=== PATIENT | female | born 1985 | race African-American/Black ===

== ENCOUNTER 2016-12-06 18:56 | Emergency (ER) | payer OTHER ==
[2016-12-06 19:28] VITALS: BP 123/89
--- NOTE | 2016-12-06 20:10 | UC ---
Cardiac HPI - HPI Summary HPI Summary: The patient comes in today for: 1. Heart was racing, and feeling lightheadedness (near syncope): Onset: Yesterday--for about 2 hours. 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 It lasted about 1.5 hours. Very first time she had this sort of thing was several years ago. She was put on Zoloft at that time. She thinks that this medication helped. She was having about 2-3/ day. At that time, these episodes were lasting just an hour. She did not have an evaluation for possible medical cause. Palliative/provocative: Sitting down made it better. Nothing else affected it. Quality: Region: Severity: Associated symptoms: Diet: No energy drinks. She drinks about 2-3 cups/weak. No decongestants or herbal supplements. Previous heart disease: None Previous thyroid problems (no change in her hair, weight, or sleep). CAD risk factors: Smoker: 1 cigarette once a day, HTN: only gestational (5 years ago), DM: None, Previous heart disease: None FmHx: (-), Shortness of breath: Present during the whole palpitations. Previous disease: She had this before. She was put on Zoloft at 25 mg/day three weeks ago by her primary care provider due to the panic attacks getting worse. This medication has helped. Her PCP referred her to mental health. PCP: Dr. Alvares * - History of Current Complaint Chief Complaint: UCChestPain Stated Complaint: CHEST PAIN Time Seen by Provider: 12/06/16 20:01 Hx Obtained From: Patient, Family/Daycare Assistant - Allergy/Home Medications Allergies/Adverse Reactions: Allergies Allergy/AdvReac Type Severity Reaction Status Date / Time No Known Allergies Allergy Verified 12/06/16 19:16 PMH/Surg Hx/FS Hx/Imm Hx Previously Healthy: Yes Endocrine History Of: Denies: Diabetes, Thyroid Disease, Hyperthyroidism, Hypothyroidism, Dyslipidemia Cardiovascular History Of: Denies: Cardiac Disorders, Hypertension, Pacemaker/ICD, Myocardial Infarction , Congestive Heart Failure, Atrial Fibrillation, Deep Vein Thrombosis, Bleeding Disorders Respiratory History Of: Denies: COPD, Asthma, Bronchitis, Pneumonia, Pulmonary Embolism GI/ History Of: Denies: Gastroesophageal Reflux, Ulcer, Gastrointestinal Bleed, Gall Bladder Disease, Kidney Stones, Diverticulitis, Renal Disease, Urosepsis Neurological History Of: Denies: TIA, CVA, Dementia, Seizures, Migraine Psychological History Of: Denies: Anxiety, Depression, Bipolar Disorder, Schizophrenia, Post Traumatic Stress Disorder Cancer History Of: Denies: Lung Cancer, Colorectal Cancer, Breast Cancer, Prostate Cancer, Cervical Cancer Other History Of: Negative For: HIV, Hepatitis B, Hepatitis C, Anticoagulant Therapy - Surgical History Surgical History: None - Family History Known Family History: Negative: Cardiac Disease, Hypertension - Social History Occupation: Employed Full-time Alcohol Use: None Substance Use Type: None Smoking Status (MU): Current Some Day Smoker Review of Systems Constitutional: Negative Skin: Negative Eyes: Negative ENT: Negative Respiratory: Negative Cardiovascular: Negative Gastrointestinal: Negative Genitourinary: Negative All Other Systems Reviewed And Are Negative: Yes Physical Exam Triage Information Reviewed: Yes Appearance: Well-Appearing, No Pain Distress, Well-Nourished Vital Signs: Initial Vital Signs Temp 98.6 F 12/06/16 19:23 Pulse 79 12/06/16 19:23 Resp 16 12/06/16 19:23 BP 123/89 12/06/16 19:23 Pulse Ox 100 12/06/16 19:23 Vital Signs Reviewed: Yes Eyes: Positive: Conjunctiva Clear. Negative: Discharge ENT: Positive: Hearing grossly normal. Negative: Pharyngeal erythema, Nasal congestion, Nasal drainage, TM bulging, TM dull, TM red, Tonsillar swelling, Tonsillar exudate Dental: Negative: Gross Decay/Caries @, Dental Fracture @ Neck: Positive: Supple, Nontender, No Lymphadenopathy. Negative: Nuchal Rigidity Respiratory: Negative: Lungs clear, No respiratory distress, No accessory muscle use, Crackles, Wheezing Cardiovascular: Positive: RRR, No Murmur Abdomen Description: Positive: Nontender, No Organomegaly, Soft Musculoskeletal: Positive: Strength Intact, ROM Intact, No Edema Neurological: Positive: Alert, Muscle Tone Normal Psychological: Positive: Age Appropriate Behavior, Consolable Skin: Negative: rashes - Assessment/Plan Course Of Treatment: Patient told of her treatment options. She wants to increase her sertraline to 50 mg a day and follow up with her primary care provider. - Clinical Impression Provider Diagnoses: Anxiety/panic attacks. Discharge - Discharge Plan Condition: Stable Disposition: HOME Prescriptions: Sertraline* [Zoloft*] 50 mg PO DAILY #30 tab Patient Education Materials: Anxiety (ED) Forms: *Work Release Referrals: Omaira Warner MD [Primary Care Provider] -
== END 2016-12-06 20:46 | disposition home or self-care (01) ==
LOC: UCEAST 18:56
DX: F41.0 Panic disorder [episodic paroxysmal anxiety] (principal); Z72.0 Tobacco use
CPT/HCPCS: 93005; 99212; G0463

== ENCOUNTER 2017-10-17 17:45 | Emergency (ER) | payer OTHER ==
[2017-10-17] MEDS ORDERED: Ibuprofen TAB* 600 MG PO ONE (19:09)
[2017-10-17] MEDS ORDERED: Oseltamivir CAP* 75 MG CAP PO ONE (19:09)
--- NOTE | 2017-10-17 19:11 | ED ---
Influenza-Like Illness - HPI Summary HPI Summary: 31 female presents to ED with complaints of flu like illness, body aches, low grade fever, headache and nausea that began early this morning before going to bed and worsened when she woke up around 4pm today. Admits to some congestion and cough. Told to come to ER for flu swab. 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 Denies any vomiting, abdominal pain, or sore throat. No other complaints. No PMHx. Took ibuprofen and anti-nausea medication earlier this morning around 7am. - History of Current Complaint Chief Complaint: EDFluSymptoms Time Seen by Provider: 10/17/17 18:25 Hx Obtained From: Patient Onset/Duration: Sudden Onset, Lasting Hours, Still Present, Worse Since Severity: Moderate Associated Signs & Symptoms: Fever, T Max - 100, Myalgia, Cough, Nasal Congestion, Headache - Allergy/Home Medications Allergies/Adverse Reactions: Allergies Allergy/AdvReac Type Severity Reaction Status Date / Time No Known Allergies Allergy Verified 12/06/16 19:16 PMH/Surg Hx/FS Hx/Imm Hx Endocrine/Hematology History: Denies: Hx Anticoagulant Therapy, Hx Diabetes, Hx Thyroid Disease Cardiovascular History: Denies: Hx Congestive Heart Failure, Hx Deep Vein Thrombosis, Hx Hypertension , Hx Myocardial Infarction, Hx Pacemaker/ICD Respiratory History: Denies: Hx Asthma, Hx Chronic Obstructive Pulmonary Disease (COPD), Hx Lung Cancer, Hx Pneumonia, Hx Pulmonary Embolism GI History: Denies: Hx Gall Bladder Disease, Hx Gastrointestinal Bleed, Hx Ulcer, Hx Urosepsis History: Denies: Hx Kidney Stones, Hx Renal Disease Neurological History: Denies: Hx Dementia, Hx Migraine, Hx Seizures, Hx Transient Ischemic Attacks (TIA) Psychiatric History: Denies: Hx Anxiety, Hx Depression, Hx Schizophrenia, Hx Bipolar Disorder - Surgical History Surgery Procedure, Year, and Place: n/a - Immunization History Date of Influenza Vaccine: 9484-8570 season Immunizations Up to Date: Yes Infectious Disease History: No Infectious Disease History: Denies: Traveled Outside the [place] in Last 30 Days - Family History Known Family History: Negative: Cardiac Disease, Hypertension - Social History Alcohol Use: None Substance Use Type: Reports: None Smoking Status (MU): Current Some Day Smoker Review of Systems Positive: Fever, Chills, Fatigue Positive: Nasal Discharge Cardiovascular: Negative Positive: Cough Positive: Nausea Positive: Myalgia Positive: Headache All Other Systems Reviewed And Are Negative: Yes Physical Exam Triage Information Reviewed: Yes Vital Signs On Initial Exam: Initial Vitals Temp Pulse Resp BP Pulse Ox 99.8 F 95 18 126/85 98 10/17/17 17:50 10/17/17 17:50 10/17/17 17:50 10/17/17 17:50 10/17/17 17:50 low grade temp noted Vital Signs Reviewed: Yes Appearance: Positive: No Pain Distress, Well-Nourished, Ill-Appearing Skin: Positive: Warm, Skin Color Reflects Adequate Perfusion, Dry. Negative: Cold, Numb, Cyanosis @, Pale, Erythema @ Head/Face: Positive: Normal Head/Face Inspection Eyes: Positive: Conjunctiva Clear ENT: Positive: Pharynx normal, Nasal congestion, TMs normal, Uvula midline. Negative: Tonsillar swelling, Tonsillar exudate, Sinus tenderness Dental: Negative: Cervical Lymphadenopathy Neck: Positive: Supple, Nontender Respiratory/Lung Sounds: Positive: Clear to Auscultation, Breath Sounds Present. Negative: Rales, Rhonchi, Wheezes Cardiovascular: Positive: Normal, RRR, Pulses are Symmetrical in both Upper and Lower Extremities. Negative: Murmur, Rub Abdomen Description: Positive: Nontender, Soft Bowel Sounds: Positive: Present Musculoskeletal: Positive: Normal, Strength/ROM Intact Neurological: Positive: Normal, Sensory/Motor Intact, Alert, Oriented to Person Place, Time Diagnostics - Vital Signs Vital Signs Temp Pulse Resp BP Pulse Ox 10/17/17 17:50 99.8 F 95 18 126/85 98 - Laboratory Lab Results: Lab Results 10/17/17 Range/Units 17:55 Influenza A (Rapid) Negative (Negative) Influenza B (Rapid) Negative (Negative) Lab Statement: Any lab studies that have been ordered have been reviewed, and results considered in the medical decision making process. Flu Symptom Course/Dx - Course Course Of Treatment: influneza swab obtained and negative. appears to be suffering from virus/flu-like illness. no other concerns at this time. aware of worsening signs and symptoms to watch out for. Follow up pcp. fluids, rest, continue anti-emetic, ibuprofen/tylenol. will give tamiflu due to flu exposure and symptoms of flu. patient requested, agrees and understands. good hand hygeine. - Diagnoses Differential Diagnosis/HQI/PQRI: Positive: Influenza, Upper Respiratory Infection, Other - viral syndrome Provider Diagnoses: Viral syndrome, Flu-like symptoms Discharge - Discharge Plan Condition: Stable Disposition: HOME Prescriptions: Oseltamivir CAP* [Tamiflu CAP*] 75 mg PO BID #9 cap Patient Education Materials: Viral Syndrome (ED) Forms: *Work Release Referrals: Jacqueline Brandt NP [Primary Care Provider] - Additional Instructions: Continue ibuprofen/tylenol alternating for headache, body aches and fever. Increase fluid intake and stay well hydrated. Rest and be sure to wash hands frequently, cover mouth when coughing. Continue anti-nausea medication as needed so you are able to increase fluids. Follow up with PCP. Any new or worsening symptoms please seek medical attention promptly.
[2017-10-17] MEDS ORDERED: Ondansetron ODT TAB* 4 MG PO ONE (19:20)
[2017-10-17 20:07] VITALS: BP 125/74
== END 2017-10-17 20:06 | disposition home or self-care (01) ==
LOC: ED 17:45
DX: B34.9 Viral infection, unspecified (principal); J11.1 Influenza due to unidentified influenza virus with other respiratory manifestations
CPT/HCPCS: 87502; 99282; A9270-GY

== ENCOUNTER 2017-11-21 06:35 | Emergency (ER) | payer OTHER ==
--- NOTE | 2017-11-21 08:16 | RAD ---
HISTORY: Right hand injury, swelling COMPARISONS: None VIEWS: 2, Frontal and lateral views of the right hand FINDINGS: BONE DENSITY: Normal. BONES: There is no displaced fracture. JOINTS: There is no arthropathy. ALIGNMENT: There is no dislocation. SOFT TISSUES: Unremarkable. OTHER FINDINGS: None. IMPRESSION: NO ACUTE OSSEOUS INJURY. IF SYMPTOMS PERSIST, RECOMMEND REPEAT IMAGING.
[2017-11-21] MEDS ORDERED: Ketorolac INJ* 30 MG/ML 1 ML VIAL IV PUSH ONE (08:31)
--- NOTE | 2017-11-21 09:36 | RAD ---
INDICATION: Pain and swelling. COMPARISON: None TECHNIQUE: Duplex interrogation of the Lowerextremity was performed. FINDINGS: Deep veins: The visualized jugular, visualized Indonesian, axial, brachial, radial, and ulnar veins are patent. There is normal compressibility, augmentation, and phasic flow. Superficial veins: There are no findings of superficial thrombophlebitis. The basilic and cephalic veins are patent Soft tissues:There are no soft tissue abnormalities. IMPRESSION: Normal examination. No evidence of deep venous thrombosis
[2017-11-21] MEDS ORDERED: Ketorolac INJ* 60 MG/2 ML VIAL IM ONE (09:43)
[2017-11-21 09:48] LABS: Hematocrit 36 % (35-47); Hemoglobin 12.3 g/dl (12.0-16.0); Mean Corpuscular HGB Conc 34 g/dl (31-36); Mean Corpuscular Hemoglobin 31 pg (27-31); Mean Corpuscular Volume 91 fL (80-97); Platelet Count 231 10^3/ul (150-450); Red Blood Count 3.99 10^6/ul (4.0-5.4); Red Cell Distribution Width 14 % (10.5-15); White Blood Count 5.8 10^3/ul (3.5-10.8)
[2017-11-21 10:05] LABS: EGFR Non-African American 103.8 (>60)
[2017-11-21 11:18] VITALS: BP 00/0
--- NOTE | 2017-12-05 12:57 | ED ---
Paulo Burnham Stephanie, scribed for J Luis Bustos MD on 11/21/17 at 0842 . Upper Extremity Pain - HPI Summary HPI Summary: The pt is a 31 y/o F presenting to the ED with c/o R hand pain that began on . 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 Symptoms include nausea secondary to the R hand pain and warmth over the R forearm. The pt denies CP, bilateral LE edema, R hand tingling, R hand numbness, fever, diaphoresis and chills. She denies hearing a snapping or popping sound from her R UE. Alleviating factors include rest. The pt states she has been mopping harder than usual. Pain is rated as a 7 in severity. - History of Current Complaint Chief Complaint: EDExtremityUpper Stated Complaint: RIGHT HAND INJURY Time Seen by Provider: 11/21/17 08:12 Hx Obtained From: Patient Hx Last Menstrual Period: about 4 days ago Mechanism Of Injury: Unknown Onset/Duration: Started Days Ago - 1, Still Present Timing: Constant Severity Currently: Moderate Pain Location: Hand - R Aggravating Factor(s): Extension Alleviating Factor(s): Nothing Associated Signs & Symptoms: Positive: Swelling - R lower arm, Nausea - secondary to pain, Other - Negative: bilateral LE edema, R hand tingling, R hand numbness. Negative: Fever, Chest Pain, Diaphoresis - Allergies/Home Medications Allergies/Adverse Reactions: Allergies Allergy/AdvReac Type Severity Reaction Status Date / Time No Known Allergies Allergy Verified 12/06/16 19:16 PMH/Surg Hx/FS Hx/Imm Hx Endocrine/Hematology History: Denies: Hx Anticoagulant Therapy, Hx Diabetes, Hx Thyroid Disease Cardiovascular History: Denies: Hx Congestive Heart Failure, Hx Deep Vein Thrombosis, Hx Hypertension , Hx Myocardial Infarction, Hx Pacemaker/ICD Respiratory History: Denies: Hx Asthma, Hx Chronic Obstructive Pulmonary Disease (COPD), Hx Lung Cancer, Hx Pneumonia, Hx Pulmonary Embolism GI History: Denies: Hx Gall Bladder Disease, Hx Gastrointestinal Bleed, Hx Ulcer, Hx Urosepsis History: Denies: Hx Kidney Stones, Hx Renal Disease Neurological History: Denies: Hx Dementia, Hx Migraine, Hx Seizures, Hx Transient Ischemic Attacks (TIA) Psychiatric History: Denies: Hx Anxiety, Hx Depression, Hx Schizophrenia, Hx Bipolar Disorder - Surgical History Surgery Procedure, Year, and Place: n/a - Immunization History Date of Influenza Vaccine: [id number] season Infectious Disease History: No Infectious Disease History: Denies: Traveled Outside the [place] in Last 30 Days - Family History Known Family History: Negative: Cardiac Disease, Hypertension - Social History Occupation: Employed Full-time Lives: Alone Alcohol Use: None Hx Substance Use: No Substance Use Type: Reports: None Hx Tobacco Use: Yes Smoking Status (MU): Current Some Day Smoker Have You Smoked in the Last Year: Yes Review of Systems Negative: Fever, Chills, Skin Diaphoresis Positive: Nausea - secondary to pain Positive: Edema - Negative: bilateral LE edema, Other - R hand pain, warmth over R forearm Positive: Paresthesia - of R hand. Negative: Numbness - R hand All Other Systems Reviewed And Are Negative: Yes Physical Exam - Summary Physical Exam Summary: Constitutional: Well-developed, Well-nourished, Alert. (-) Distressed Skin: Warm, Dry HENT: Normocephalic; Atraumatic Eyes: Conjunctiva normal Neck: Musculoskeletal ROM normal neck. (-) JVD, (-) Stridor, (-) Tracheal deviation Cardio: Rhythm regular, rate normal, Heart sounds normal; Intact distal pulses; The pedal pulses are 2+ and symmetric. Radial pulses are 2+ and symmetric. (-) Murmur Pulmonary/Chest wall: Effort normal. (-) Respiratory distress, (-) Wheezes, (-) Rales Abd: Soft, (-) Tenderness, (-) Distension, (-) Guarding, (-) Rebound Musculoskeletal: minimal pain with passive extension of the fingers of R hand, there is edema to the medial aspect of the R lower arm distal to the elbow, no erythema, no tenderness Lymph: (-) Cervical adenopathy Neuro: Alert, Oriented x3 Psych: Mood and affect Normal Triage Information Reviewed: Yes Vital Signs On Initial Exam: Initial Vitals Temp Pulse Resp BP Pulse Ox 98.5 F 82 16 129/95 98 11/21/17 06:36 11/21/17 06:36 11/21/17 06:36 11/21/17 06:36 11/21/17 06:36 Vital Signs Reviewed: Yes Diagnostics - Vital Signs Vital Signs Temp Pulse Resp BP Pulse Ox 11/21/17 06:36 98.5 F 82 16 129/95 98 - Laboratory Result Diagrams: 11/21/17 09:34 11/21/17 09:34 Lab Statement: Any lab studies that have been ordered have been reviewed, and results considered in the medical decision making process. - Radiology R Hand XRay Xray Interpretation: No Acute Changes Radiology Interpretation Completed By: Radiologist - NO ACUTE OSSEOUS INJURY. IF SYMPTOMS PERSIST, RECOMMEND REPEAT IMAGING. ED physician has reviewed this report. - Additional Comments Diagnostic Additional Comments: Venous Doppler Reveals: Normal examination. No evidence of deep venous thrombosis Re-Evaluation - Re-Evaluation First Eval Re-Evaluation Time: 10:56 Change: Unchanged - The pt has discomfort in the wrist and hand with extension. No wrist and hand bony tenderness. Course/Dx - Course Course Of Treatment: The pt is relatively comfortable. ED physician does not suspect compartment syndrome. Compartments are soft. ED physician does not suspect cellulitis. There is no tenderness to palpation at all and no skin tenderness. Her pain with active and passive ROM is most suggestive of tendinitis. Dr. Alba suggests possible chronic contracture. Dr. Alba recommended cockup splint. - Diagnoses Provider Diagnoses: Hand pain - Physician Notifications Discussed Care of Patient With: Hardy Gonzalez Time Discussed With Above Provider: 10:51 Discharge - Sign-Out/Discharge Documenting (check all that apply): Discharge - Discharge Plan Condition: Stable Disposition: HOME Prescriptions: traMADol TAB* [Ultram*] 50 mg PO BEDTIME PRN #5 tab MDD 1 PRN Reason: Pain - Moderate To Severe Patient Education Materials: Arthralgia (ED) Forms: *Work Release Referrals: Jacqueline Brandt NP [Primary Care Provider] - 3 Days Hardy Gonzalez MD [Medical Doctor] - 2 Days Additional Instructions: Follow up with ortho in 48 hrs. RETURN TO THE EMERGENCY DEPARTMENT FOR CHANGING OR WORSENING SYMPTOMS. The documentation as recorded by the Paulo wright Stephanie accurately reflects the service I personally performed and the decisions made by me, J Luis Bustos MD.
== END 2017-11-21 11:16 | disposition home or self-care (01) ==
LOC: ED 06:35
DX: M79.641 Pain in right hand (principal); M79.601 Pain in right arm; R11.0 Nausea; Z72.0 Tobacco use
CPT/HCPCS: 36415; 80053; 85027; 85652; 86140; 96372; 96374; 99282; J1885

== ENCOUNTER 2018-03-13 09:58 | Emergency (ER) | payer OTHER ==
[2018-03-13] MEDS ORDERED: HYDROcodone/ACETAMIN 5-325 MG* 1 TAB PO ONE (10:54)
[2018-03-13 11:15] LABS: Urine Appearance Clear; Urine Blood Negative (Negative); Urine Color Yellow; Urine Ketones Negative (Negative); Urine Protein Negative (Negative); Urine Specific Gravity 1.019 (1.010-1.030); Urine Urobilinogen Negative (Negative)
--- NOTE | 2018-03-13 11:41 | ED ---
Upper Extremity Pain - HPI Summary HPI Summary: Patient presents with bilateral wrist and hand pain - 02/04. Lt > RT. She reports this started about 2-3 days ago and was worse last night. She had to leave work due to pain. She took Tylenol without relief and pain woke her early this morning. She has somewhat decreased sensation and pain worse with gripping. Her right hand was injured 2-3 months ago after overuse with mopping at work. She was seen in physical therapy and has been wearing a splint which has been helpful up until recently. She has not had her left hand treated yet. . 9 weeks . Prior history of pre-eclampsia with one of her births. Denies headache, visual change, leg swelling or fluid retention, CP or SOB at this time. Due to se OBGYN in a few weeks for 1st appt. - History of Current Complaint Chief Complaint: EDExtremityUpper Stated Complaint: LT HAND INJURY Time Seen by Provider: 03/13/18 10:11 Hx Obtained From: Patient, Family/Transformer Inspector - fiance Hx Last Menstrual Period: about 4 days ago - Allergies/Home Medications Allergies/Adverse Reactions: Allergies Allergy/AdvReac Type Severity Reaction Status Date / Time No Known Allergies Allergy Verified 03/13/18 10:04 PMH/Surg Hx/FS Hx/Imm Hx Previously Healthy: Yes Endocrine/Hematology History: Denies: Hx Anticoagulant Therapy, Hx Diabetes, Hx Thyroid Disease Cardiovascular History: Reports: Other Cardiovascular Problems/Disorders - pre- eclempsia during 1 of her pregnancies Denies: Hx Congestive Heart Failure, Hx Deep Vein Thrombosis, Hx Hypertension , Hx Myocardial Infarction, Hx Pacemaker/ICD Respiratory History: Denies: Hx Asthma, Hx Chronic Obstructive Pulmonary Disease (COPD), Hx Lung Cancer, Hx Pneumonia, Hx Pulmonary Embolism GI History: Denies: Hx Gall Bladder Disease, Hx Gastrointestinal Bleed, Hx Ulcer, Hx Urosepsis History: Denies: Hx Kidney Stones, Hx Renal Disease Musculoskeletal History: Reports: Hx Tendonitis - Rt hand/wrist Neurological History: Denies: Hx Dementia, Hx Migraine, Hx Seizures, Hx Transient Ischemic Attacks (TIA) Psychiatric History: Denies: Hx Anxiety, Hx Depression, Hx Schizophrenia, Hx Bipolar Disorder - Surgical History Surgery Procedure, Year, and Place: n/a - Immunization History Date of Influenza Vaccine: [id number] season Infectious Disease History: No Infectious Disease History: Denies: Traveled Outside the [place] in Last 30 Days - Family History Known Family History: Negative: Cardiac Disease, Hypertension - Social History Occupation: Employed Full-time - nurse aid Lives: With Family Alcohol Use: None Hx Substance Use: No Substance Use Type: Reports: None Hx Tobacco Use: Yes Smoking Status (MU): Former Smoker Have You Smoked in the Last Year: Yes Review of Systems Constitutional: Negative Negative: Fever, Chills, Fatigue Eyes: Negative Negative: Chest Pain Negative: Shortness Of Breath Gastrointestinal: Negative Negative: Abdominal Pain, Vomiting, Diarrhea, Nausea Genitourinary: Negative - no vaginal spotting, bleeding Positive: Arthralgia, Myalgia, Decreased ROM. Negative: Edema Skin: Negative Positive: Weakness - vs. pain induced restriction, Paresthesia. Negative: Headache, Numbness, Syncope, Slurred Speech Psychological: Normal All Other Systems Reviewed And Are Negative: Yes Physical Exam Triage Information Reviewed: Yes Vital Signs On Initial Exam: Initial Vitals Temp Pulse Resp BP Pulse Ox 99.0 F 93 16 145/100 100 03/13/18 10:03/13/18 10:03/13/18 10:03/13/18 10:03/13/18 10:00 Vital Signs Reviewed: Yes Appearance: Positive: Well-Appearing, Well-Nourished, Pain Distress Skin: Positive: Warm, Skin Color Reflects Adequate Perfusion, Dry - no erythema , no ecchymosis, no lesions over affected areas of UE's Head/Face: Positive: Normal Head/Face Inspection Eyes: Positive: EOMI ENT: Positive: Hearing grossly normal Respiratory/Lung Sounds: Positive: Clear to Auscultation, Breath Sounds Present Cardiovascular: Positive: Normal, RRR, Pulses are Symmetrical in both Upper and Lower Extremities - no edema, S1, S2. 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 Negative: Sensory/Motor Intact - can feel gross touch of B/L UE's however reports somewhat decreased sensation over all phalanges B/L; TTP voer thenar eminance and distal forearms B/L - no proximal muscle insertion tenderness Psychiatric: Positive: Anxious Diagnostics - Vital Signs Vital Signs Temp Pulse Resp BP Pulse Ox 03/13/18 10:00 99.0 F 93 16 145/100 100 - Laboratory Lab Results: Lab Results 03/13/18 Range/Units 11:00 Urine Color Yellow Urine Appearance Clear Urine pH 5.0 (5-9) Ur Specific [place] 1.019 (1.010-1.030) Urine Protein Negative (Negative) Urine Ketones Negative (Negative) Urine Blood Negative (Negative) Urine Nitrate Negative (Negative) Urine Bilirubin Negative (Negative) Urine Urobilinogen Negative (Negative) Ur Leukocyte Esterase Negative (Negative) Urine Glucose Negative (Negative) Lab Statement: Any lab studies that have been ordered have been reviewed, and results considered in the medical decision making process. Course/Dx - Course Course Of Treatment: Patient presents with bilateral hand and wrist pain and decreased sensation over the past 2-3 days. She admits to a history of right- sided carpal tunnel/tendinitis. She was treated with physical therapy and a splint which seemed to alleviate symptoms until recently. She now has return of symptoms and the right hand and they have been present in the left hand as well. She has been working as a nurse's aide which entails lifting, gripping, etc. Suspect she has tendonitis with some featrures of CTS. Will refer to PT and PCP. NOTE: BP elevated and w/ h/o pre-eclempsia, checked pt's urine which not only is w/o protein but is completely normal otherwise. BP improved s/p norco. Discussion about using judiciously d/t . Pt and partner voice understanding. NOTE: FHR attempted bedside however too early to hear HR. No concerns of miscarriage so no further testing necessary at this time. Pt will f/ u w/ OBGYN as directed and may return to ED sooner if she has concerns of miscarriage. - Diagnoses Provider Diagnoses: Tendonitis of both wrists Discharge - Sign-Out/Discharge Documenting (check all that apply): Patient Departure - Discharge Plan Condition: Stable Disposition: HOME Prescriptions: HYDROcodone/ACETAMIN 5-325 MG* [[place] 5-325 TAB*] 1 tab PO Q6H PRN #15 tab MDD 4 PRN Reason: Pain Patient Education Materials: Tendinitis (ED) Forms: *Work Release Referrals: [facility] [Outside] Additional Instructions: You appear to have bilateral tendinitis of the flexor muscles in your forearm. The inflammation this causes may additionally be contributing to carpal tunnel syndrome. It is important that she wear your wrist guards daily and nightly however you may remove to stretch your wrists and fingers throughout the day to prevent stiffness and atrophy. He may also continue to take acetaminophen 650 mg every 6 hours as needed for pain. If pain is unbearable interfering with sleep, he may take one [place]. Take sure not to exceed 4000 mg of acetaminophen in a 24-hour period. He may calculate this milligram dosage by looking at the dosage on your [place] (325 mg per pill) and the dosage on your acetaminophen. Is important that you follow-up with physical therapy and a PCP this week. After multiple sessions of physical therapy, your PCP will most likely want to see you for a follow-up visit to see how your progressing. If further testing or treatment is necessary, this may be ordered at that time. Call today to schedule these appointments - contact information included here. Physical Therapy: - Billing Disposition and Condition Condition: STABLE Disposition: Home
[2018-03-13 11:51] VITALS: BP 107/84
== END 2018-03-13 11:50 | disposition home or self-care (01) ==
LOC: ED 09:58
DX: O26.891 Other specified pregnancy related conditions, first trimester (principal); M65.841 Other synovitis and tenosynovitis, right hand; M65.842 Other synovitis and tenosynovitis, left hand; Z3A.09 9 weeks gestation of pregnancy
CPT/HCPCS: 81003; 99282

== ENCOUNTER 2018-03-14 17:31 | Emergency (ER) | payer OTHER ==
--- OUTSIDE RECORDS SUMMARY | 2018-03-14 17:49 | XMS REPORT ---
:1985 External Reference #:[id number] Author Organization [facility] Address [address] [place] [address] [place] [address] Phone [phone] Care Team Providers Name Role Phone Patient's Choice Primary Care Physician Unavailable Payers Type Date Identification Numbers Payment Provider Subscriber Commercial Policy Number: [id number] Tristan De La Cruz Lashawn Group Number: [id number] [address] PayID: [id number] [place] [address] Workers Compensation Onset: 2015 Policy Number: Pérezlaurita De La Cruz [id number] Lashawn PayID: [id number] [address] [address] [place] [address] Workers Compensation Onset: 2017 Policy Number: [facility] Zane De La Cruz Lashawn [id number] Group Name: [phone] PayID: [place] [address] Problems Date Description Provider Status Onset: 09/06/2013 Obesity Omaira Warner M.D. Active Onset: 09/06/2013 Generalized anxiety disorder Omaira Warner M.D. Active Onset: 10/08/2015 Low back pain Omaira Warner M.D. Active Onset: 10/08/2015 Pain in thoracic spine Omaira Warner M.D. Active Onset: 03/14/2018 Wrist joint pain Calin Brown MD Active Onset: 03/14/2018 Bilateral carpal tunnel syndrome Calin Brown MD Active Social History Type Date Description Comments Marital Status Single Engaged Lives With Daughters Lives With Son Occupation Works at [employer] ETOH Use consumes 4-5 glasses of wine per week ETOH Use Consumes 1 glass of wine per week Recreational Drug Use Denies Drug Use Smoking Patient is a former smoker Exercise Type/Frequency Exercises rarely Sexual Hx text sexually active Allergies, Adverse Reactions, Alerts Date Description Reaction Status Severity Comments 08/23/2013 NKDA active Medications Medication Date Status Form Strength Qnty SIG Indications Ordering Provider Womens One Daily 00/ Active Tablets 1 by mouth Unknown /0000 every day Tylenol Active Tablets 325mg take 2 Unknown /0000 tabs as needed every 6 hours for pain/fever Hydrocodone-Acet Active Tablets 5-325mg 1 or 2 Unknown aminophen /0000 tabs by mouth every 6-8 hours as needed for pain No Active 11/29 Hx Unknown Medications /2017 - 03/14 Bupropion HCL 05/16 Hx Tablets 100mg 60tab take 1 F90.2 s tablet by Varn, N.P. - mouth two 11/28 times daily Omeprazole 04/[address] 20mg 60cap 1 by mouth K21.9 Kayla /2017 s every day Vanessa Ryan 30 min M.DHope 05/16 before breakfast Alprazolam 12/08 Hx Tablets 0.25mg 20tab one by F41.9 s mouth up Varn, N.P. - to three 05/16 times daily as needed for anxiety Tramadol HCL 11/25 Hx Tablets 50mg 14tab 1 tablet M54.5 s three Varn, N.P. - times 04/10 daily needed Cyclobenzaprine 11/25 Hx Tablets 10mg 30tab one by M54.5 Jacqueline s mouth 2x Varn, N.P. - per day as 11/28 needed spasm Medrol 11/25 Hx TBPK 4mg 21uni 6 by mouth M54.5 ts day 1, 5 Varn, N.P. - by mouth 12/01 day 2, by mouth day 3, 3 by mouth day 4, 2 by mouth day 5, 1 by mouth day 6 Sertraline HCL 11/16 Hx Tablets 25mg 30tab 1 by mouth F34.1 Bebeto Subramanian s every day Vanessa Alvares M.D. 12/08 Colace 10/16 Hx Capsules 100mg 90cap 1 tab by [id number] Angel s mouth Rito, - three M.D. 05/16 times a day as needed Hydrocodone-Acet 08/11 Hx Tablets 5-325mg 60tab 1 by mouth M54.5 Omaira aminophen s twice a Timmy, - day M.D. 11/16 No Active 07/31 Hx Unknown Medications - 07/31 Ortho Tri-Cyclen 07/31 Hx Tablets 0.18/0.21 28tab 1 by mouth N92.6 Omaira Lo 5/0.25 s every day Timmy, - mg-25 mcg M.D. 04/10 Naproxen 07/31 Hx Tablets 500mg 120ta No Longer M54.5 Omaira /2014 bs Helping Timmy, - M.D. 12/08 Hydrocodone 07/31 Hx Tablets 2.5-325mg 42tab 1 tab po M54.5 Omaira Bitartrate/Aceta s 2x per day saqib Warner - M.D. 07/31 Hydrocodone-Acet 07/31 Hx Tablets 5-325mg 20tab 1/2 PO bid M54.5 Tali aminophen s Naga, - M.D. 07/31 Cyclobenzaprine 07/31 Hx Tablets 10mg 90tab one by M54.5 Omaira HCL s mouth 2x Timmy, - per day as M.D. 11/16 spasm Metronidazole 09/12 Hx Gel 0.75% 1tube t applicator Timmy, - vaginally M.D. 07/31 once per day 7 days No Active 09/11 Hx Unknown Medications - 09/11 Depo-Provera 09/11 Hx Suspension 150mg/ml 1vial inject V76.2 150 mg sc Timmy, - every 3 M.D. Clindacin Etz 10/24 Hx Swab 1% 1mont use on 706.1 Omaira Segal h face 3 Timmy, - times per M.D. Spironolactone 10/24 Hx Tablets 25mg 30tab 1 po qd 706.1 Omaira /2014 s Vanessa Warner M.D. 09/11 Venlafaxine HCL 10/24 Hx Caps ER 37.5mg 1mont 1 tab po 300.02 24HR h every day Vanessa Warner 7 the .DHope 09/11 2 tab po /2014 every day 3 weeks Lexapro 09/06 Hx Tablets 10mg 30tab every day s by mouth Vanessa Warner M.D. 09/11 No Active 08/23 Hx Omaira Vanessa Warner M.D. 08/23 Venlafaxine HCL 08/23 Hx Caps ER 37.5mg 1mont 1 tab po 300.02 Omaira 24HR h every day Vanessa Warner 7 the .DHope 09/06 2 tab po every day 3 weeks Sertraline HCL Hx Tablets 50mg 60tab 2 tabs F34.1 Jacqueline /0000 s daily Varn, N.P. - 11/28 Womens One Daily Hx Tablets 1 by mouth Unknown /0000 every day - 05/16 Fish Oil Hx Capsules 1000mg 1 by mouth Unknown Concentrate /0000 twice a - day 05/16 Medications Administered in Office Medication Date Status Form Strength Qnty SIG Indications Ordering Provider PPD Administered Injection Nurse Visit 6 C PPD Administered Injection Nurse Visit 4 C Vital Signs Date Vital Result Comment 03/14/2018 Height 65.5 inches 5'5.50" Weight 242.12 lb Heart Rate 74 /min BP Systolic 132 mmHg Rue lrg cuff BP Diastolic 80 mmHg Rue lrg cuff BP Systolic Sitting 123 mmHg Lue lrg cuff BP Diastolic Sitting 83 mmHg Lue lrg cuff Respiratory Rate 18 /min Body Temperature 98.9 F O2 % BldC Oximetry 98 % BMI (Body Mass Index) 39.7 kg/m2 11/29/2017 Height 65.5 inches 5'5.50" Weight 220.00 lb Respiratory Rate 14 /min Pain Level 3 BMI (Body Mass Index) 36.0 kg/m2 05/16/2017 Height 65.5 inches 5'5.50" Weight 228.00 lb Heart Rate 94 /min BP Systolic Sitting 138 mmHg BP Diastolic Sitting 80 mmHg O2 % BldC Oximetry 99 % BMI (Body Mass Index) 37.4 kg/m2 04/11/2017 Weight 224.25 lb Heart Rate 94 /min BP Systolic Sitting 128 mmHg BP Diastolic Sitting 98 mmHg Body Temperature 98.5 F O2 % BldC Oximetry 97 % 03/20/2017 Weight 222.50 lb Heart Rate 72 /min BP Systolic 114 mmHg BP Diastolic 66 mmHg Body Temperature 98.7 F O2 % BldC Oximetry 98 % 01/11/2017 Weight 223.50 lb Heart Rate 112 /min BP Systolic 112 mmHg BP Diastolic 70 mmHg Body Temperature 98.3 F O2 % BldC Oximetry 98 % 12/08/2016 Weight 229.00 lb Heart Rate 83 /min BP Systolic Sitting 124 mmHg BP Diastolic Sitting 84 mmHg Body Temperature 97.9 F O2 % BldC Oximetry 99 % 11/25/2016 Weight 229.75 lb Heart Rate 75 /min BP Systolic 102 mmHg BP Diastolic 78 mmHg Body Temperature 98.6 F Pain Level 10 O2 % BldC Oximetry 99 % 11/16/2016 Height 65.5 inches 5'5.50" Weight 231.00 lb Heart Rate 66 /min BP Systolic 120 mmHg BP Diastolic 76 mmHg Body Temperature 98.6 F O2 % BldC Oximetry 96 % BMI (Body Mass Index) 37.9 kg/m2 05/09/2016 Height 65.5 inches 5'5.50" Weight 236.12 lb BP Systolic Sitting 128 mmHg BP Diastolic Sitting 80 mmHg BMI (Body Mass Index) 38.7 kg/m2 11/12/2015 Height 65.5 inches 5'5.50" Weight 237.00 lb Heart Rate 76 /min BP Systolic Sitting 126 mmHg BP Diastolic Sitting 82 mmHg Respiratory Rate 15 /min Body Temperature 98.3 F O2 % BldC Oximetry 98 % BMI (Body Mass Index) 38.8 kg/m2 10/16/2015 Height 65.5 inches 5'5.50" Weight 239.00 lb Heart Rate 88 /min BP Systolic Sitting 128 mmHg BP Diastolic Sitting 82 mmHg Respiratory Rate 15 /min Body Temperature 98.0 F O2 % BldC Oximetry 98 % BMI (Body Mass Index) 39.2 kg/m2 10/08/2015 Height 65.5 inches 5'5.50" Weight 239.50 lb Heart Rate 89 /min BP Systolic Sitting 123 mmHg BP Diastolic Sitting 85 mmHg O2 % BldC Oximetry 98 % BMI (Body Mass Index) 39.2 kg/m2 09/18/2015 Heart Rate 102 /min BP Systolic Sitting 125 mmHg BP Diastolic Sitting 88 mmHg Body Temperature 99.0 F Pain Level 6 09/04/2015 Height 65.75 inches 5'5.75" Weight 236.00 lb Heart Rate 91 /min BP Systolic 112 mmHg BP Diastolic 75 mmHg Body Temperature 99.0 F Pain Level 5 O2 % BldC Oximetry 100 % BMI (Body Mass Index) 38.4 kg/m2 08/27/2015 Height 65.75 inches 5'5.75" Weight 236.00 lb Heart Rate 102 /min BP Systolic 118 mmHg BP Diastolic 81 mmHg Body Temperature 98.5 F Pain Level 5 O2 % BldC Oximetry 98 % BMI (Body Mass Index) 38.4 kg/m2 08/11/2015 Weight 236.00 lb Heart Rate 100 /min BP Systolic Sitting 125 mmHg BP Diastolic Sitting 80 mmHg Body Temperature 98.4 F Pain Level 6 07/31/2015 Height 65.75 inches 5'5.75" Weight 232.00 lb Heart Rate 71 /min BP Systolic 122 mmHg BP Diastolic 77 mmHg BMI (Body Mass Index) 37.7 kg/m2 07/31/2015 Height 65.75 inches 5'5.75" Weight 232.00 lb Heart Rate 74 /min BP Systolic 122 mmHg BP Diastolic 78 mmHg O2 % BldC Oximetry 99 % BMI (Body Mass Index) 37.7 kg/m2 09/11/2014 Height 65.75 inches 5'5.75" Weight 206.00 lb Heart Rate 83 /min BP Systolic Sitting 115 mmHg BP Diastolic Sitting 81 mmHg BMI (Body Mass Index) 33.5 kg/m2 10/24/2013 Height 65.75 inches 5'5.75" Weight 216.75 lb Heart Rate 81 /min BP Systolic Sitting 122 mmHg BP Diastolic Sitting 84 mmHg Body Temperature 98.8 F O2 % BldC Oximetry 98 % BMI (Body Mass Index) 35.2 kg/m2 08/23/2013 Height 65.75 inches 5'5.75" Weight 217.00 lb Heart Rate 84 /min BP Systolic Sitting 118 mmHg BP Diastolic Sitting 79 mmHg BMI (Body Mass Index) 35.3 kg/m2 Results Test Date Test Result H/L Range Note Comp Metabolic Panel 11/21/2017 Sodium 136 mmol/L 133-145 Potassium 3.7 mmol/L 3.5-5.0 Chloride 103 mmol/L 101-111 Co2 Carbon Dioxide 26 mmol/L 22-32 Anion Gap 7 mmol/L 2-11 Glucose 107 mg/dL High 70-100 Blood Urea Nitrogen 11 mg/dL 6-24 Creatinine 0.66 mg/dL 0.51-0.95 BUN/Creatinine Ratio 16.7 8-20 Calcium 8.8 mg/dL 8.6-10.3 Total Protein 6.8 g/dL 6.4-8.9 Albumin 3.9 g/dL 3.2-5.2 Globulin 2.9 g/dL 2-4 Albumin/Globulin Ratio 1.3 1-3 Total Bilirubin 0.20 mg/dL 0.2-1.0 Alkaline Phosphatase 73 U/L 34-104 Alt 15 U/L 7-52 Ast 15 U/L 13-39 Egfr Non- 103.8 >60 Egfr 133.5 >60 1 Laboratory test finding 11/21/2017 C Reactive Protein 16.86 mg/L High < 5.00 2 CBC No Diff 11/21/2017 White Blood Count 5.8 10^3/uL 3.5-10.8 Red Blood Count 3.99 10^6/uL Low 4.0-5.4 Hemoglobin 12.3 g/dL 12.0-16.0 Hematocrit 36 % 35-47 Mean Corpuscular Volume 91 fL 80-97 Mean Corpuscular Hemoglobin 31 pg 27-31 Mean Corpuscular HGB Conc 34 g/dL 31-36 Red Cell Distribution Width 14 % 10.5-15 Platelet Count 231 10^3/uL 150-450 Mean Platelet Volume 8.0 um3 7.4-10.4 Laboratory test 11/21/2017 Erythrocyte Sed Rate 18 mm/Hr High 0-14 finding Laboratory test 12/08/2016 TSH (Thyroid Stim 1.32 mcIU/mL 0.34-5.60 finding Horm) Laboratory test 05/05/2016 Reference Lab Test SEE COMMENT 3 finding Herpes Simplex Type 05/05/2016 Herpes Simplex Virus I Positive Negative 1&2 Igg IgG AB Herpes Simplex Virus II IgG AB Negative Negative 4 Rubeola Measles Igg AB 05/05/2016 Rubeola (Measles) IgG Antibody Positive 5 Rubeola IgG Antibody Index 1.8 6 HIV 1/2 AB Evaluation 05/05/2016 HIV 1 2 Antibody Nonreactive Nonreactive 7 Laboratory test finding 05/05/2016 TSH (Thyroid Stim 1.05 mcIU/mL 0.34- 5.60 Horm) Comp Metabolic Panel 05/05/2016 Sodium 136 mmol/L 133-145 Potassium 3.8 mmol/L 3.5-5.0 Chloride 102 mmol/L 101-111 Co2 Carbon Dioxide 27 mmol/L 22-32 Anion Gap 7 mmol/L 2-11 Glucose 70 mg/dL 70-100 Blood Urea Nitrogen 11 mg/dL 6-24 Creatinine 0.80 mg/dL 0.51-0.95 BUN/Creatinine Ratio 13.8 8-20 Calcium 9.1 mg/dL 8.6-10.3 Total Protein 6.8 g/dL 6.4-8.9 Albumin 4.2 g/dL 3.2-5.2 Globulin 2.6 g/dL 2-4 Albumin/Globulin Ratio 1.6 1-3 Total Bilirubin 0.40 mg/dL 0.2-1.0 Alkaline Phosphatase 72 U/L 34-104 Alt 20 U/L 7-52 Ast 17 U/L 13-39 Egfr Non- 83.7 >60 Egfr 107.6 >60 8 CBC Auto Diff 05/05/2016 White Blood Count 4.6 10^3/uL 3.5-10.8 Red Blood Count 4.40 10^6/uL 4.0-5.4 Hemoglobin 13.5 g/dL 12.0-16.0 Hematocrit 40 % 35-47 Mean Corpuscular Volume 92 fL 80-97 Mean Corpuscular Hemoglobin 31 pg 27-31 Mean Corpuscular HGB Conc 34 g/dL 31-36 Red Cell Distribution Width 14 % 10.5-15 Platelet Count 256 10^3/uL 150-450 Mean Platelet Volume 8 um3 7.4-10.4 Abs Neutrophils 2.0 10^3/uL 1.5-7.7 Abs Lymphocytes 2.2 10^3/uL 1.0-4.8 Abs Monocytes 0.3 10^3/uL 0-0.8 Abs Eosinophils 0.2 10^3/uL 0-0.6 Abs Basophils 0 10^3/uL 0-0.2 Abs Nucleated RBC 0 10^3/uL Granulocyte % 43.6 % 38-83 Lymphocyte % 46.9 % 25-47 Monocyte % 5.5 % 1-9 Eosinophil % 3.3 % 0-6 Basophil % 0.7 % 0-2 Nucleated Red Blood Cells % 0.1 Lipid Profile (Trig/Chol/HDL) 05/05/2016 Triglycerides 92 mg/dL 9 Cholesterol 160 mg/dL 10 HDL Cholesterol 50.3 mg/dL 11 LDL Cholesterol 91 mg/dL 12 Laboratory test 10/08/2015 Gardnerella/Yeast: Vaginal SEE RESULT BELOW 13 finding Dna GC/Chlamydia 10/08/2015 Chlamydia trachomatis Rna Negative Negative Amplified Rna Neisseria gonorrhoeae (GC) Rna Negative Negative Laboratory test finding 10/08/2015 HPV Rna Ww/Reflex Genotype Negative Negative 14 Trichomonas Vaginalis Rna Negative Negative 15 Cytology SEE RESULT BELOW 16 Laboratory test finding 10/08/2015 Cytology <pending> Laboratory test finding 07/31/2015 Test Urine neg Confirm Opiates (GC/MS) 07/31/2015 Urine Codeine Confirmation Negative ng/ mL 17 Urine Hydrocodone Confirm Negative ng/mL 18 Urine Hydromorphone Confirm Negative ng/mL 19 Urine Morphine Confirm Negative ng/mL 20 Urine Oxymorphone Confirm 391 ng/mL 21 Urine Oxycodone Confirm Negative ng/mL 22 Urine Opiates Interpretation Positive. 23 Drug Abuse 20 Urine 07/31/2015 Urine Amphetamine Negative ng/mL 24 Urine Barbiturates Negative ng/mL 25 Urine Benzodiazepines Negative ng/mL 26 Urine Cocaine Negative ng/mL 27 Urine Methadone Negative ng/mL 28 Urine Opiates Presumptive Posi <SEE NOTE> ng/mL 29 Urine Phencyclidine Negative ng/mL Cutoff: 25 Urine Tetrahydrocannabinol Negative ng/mL Cutoff: 20 30 Urine Oxycodone Presumptive Posi <SEE NOTE> ng/mL 31 GC/Chlamydia Amplified Rna 09/11/2014 Chlamydia trachomatis Rna Negative Negative Neisseria gonorrhoeae (GC) Rna Negative Negative 32 Laboratory test finding 09/11/2014 Gardnerella/Yeast: Vaginal Dna (SEE NOTE ) 33 Lipid Profile 10/17/2013 Triglycerides 83 mg/dL 34 (Trig/Chol/HDL) Cholesterol 170 mg/dL 35 HDL Cholesterol 61.9 mg/dL 36 LDL Cholesterol 92 mg/dL 37 Comp Metabolic Panel 10/17/2013 Sodium 138 mmol/L 133-145 Potassium 3.8 mmol/L 3.7-5.6 Chloride 106 mmol/L 101-111 Co2 Carbon Dioxide 26 mmol/L 22-32 Anion Gap 6 mmol/L 2-11 Glucose 86 mg/dL 70-100 Blood Urea Nitrogen 9 mg/dL 6-24 Creatinine 0.61 mg/dL 0.51-0.95 BUN/Creatinine Ratio 14.8 8-20 Calcium 8.9 mg/dL 8.6-10.3 Total Protein 6.7 g/dL 6.4-8.9 Albumin 4.0 g/dL 3.2-5.2 Globulin 2.7 g/dL 2-4 Albumin/Globulin Ratio 1.5 1-3 Total Bilirubin 0.30 mg/dL 0.2-1.0 Alkaline Phosphatase 75 U/L 34-104 Alt 14 U/L 7-52 Ast 12 U/L Low 13-39 Egfr Non- 116.8 >60 Egfr 150.2 >60 38 Laboratory test finding 10/17/2013 TSH (Thyroid Stimulating 2.60 IU/mL 0.34-5.60 39 Horm) Rubella Igg Titer 10/17/2013 Rubella IgG Antibody Positive 40 Rubella IgG Antibody Index 1.7 41 Rubeola Measles Igg AB 10/17/2013 Rubeola (Measles) IgG Antibody Positive 42 Rubeola IgG Antibody Index 2.6 43 Mumps Virus AB Igg & Igm 10/17/2013 Mumps Virus IgG Antibody Positive 44 Mumps IgG Antibody Index 2.7 45 Mumps Virus IgM Antibody Negative Negative Mumps IgM Antibody Index 0.00 0.00-0.79 Varicella Zoster Igg AB 10/17/2013 Varicella-Zoster IgG Antibody Positive 46 Varicella IgG Antibody Index 3.5 47 1 Because ethnic data is not always readily available, this report includes an eGFR for both -Americans and non- Americans. The National Kidney Disease Education Program (NKDEP) does not endorse the use of the MDRD equation for patients that are not between the ages of 18 and 70, are , have extremes of body size, muscle mass, or nutritional status, or are non- or non-. According to the National Kidney Foundation, irrespective of diagnosis, the stage of the disease is based on the level of kidney function: Stage Description GFR(mL/min/1.73 m(2)) 1 Kidney damage with normal or decreased GFR 90 2 Kidney damage with mild decrease in GFR 60-89 3 Moderate decrease in GFR 30-59 4 Severe decrease in GFR 15-29 5 Kidney failure <15 (or dialysis) 2 Acute inflammation: >10.00 3 Rubella Ab, IgG, S Positive SDL Results suggest response to immunization or prior exposure to the virus. REFERENCE VALUE Vaccinated: Positive (>=1.0 AI) Unvaccinated: Negative (<=0.7 AI) Rubella IgG Antibody Index 1.6 SDL RECEIVED: 05/13/2016 07:14 REPORTED: 05/13/2016 09:27 4 Test Performed by: [place] [address] Pheresis Specialist: Justyn Ocampo II, M.D., Ph.D. 5 Results suggest response to immunization or prior exposure to the virus. REFERENCE VALUE Vaccinated: Positive (>=1.1 AI) Unvaccinated: Negative (<=0.8 AI) 6 Test Performed by: [facility] [address] Pheresis Specialist: Justyn Ocampo II, M.D., Ph.D. 7 It is recognized that currently available assays for the detection of antibodies to HIV-1 and/or HIV-2 may not detect all infected individuals. HIV antibodies may be undetectable in some stages of the infection and in some clinical conditions. The performance of this assay has not been established for populations of infants or children. Assayed by Chemiluminescence Microparticle Immunoassay on the Siemens Advia Centaur CP. Values obtained with different methods or kits cannot be used interchangeably.The diagnostic specificity of the ADVIA Centaur 1/O/2 Enhanced assay in the low risk population was 99.90% (6052/6058) with a 95% confidence interval of 99.78 to 99.96%. 8 Because ethnic data is not always readily available, this report includes an eGFR for both -Americans and non- Americans. The National Kidney Disease Education Program (NKDEP) does not endorse the use of the MDRD equation for patients that are not between the ages of 18 and 70, are , have extremes of body size, muscle mass, or nutritional status, or are non- or non-. According to the National Kidney Foundation, irrespective of diagnosis, the stage of the disease is based on the level of kidney function: Stage Description GFR(mL/min/1.73 m(2)) 1 Kidney damage with normal or decreased GFR 90 2 Kidney damage with mild decrease in GFR 60-89 3 Moderate decrease in GFR 30-59 4 Severe decrease in GFR 15-29 5 Kidney failure <15 (or dialysis) 9 Desirable <150 Borderline high 150-199 High 200-499 Very High >500 10 Desirable <200 Borderline high 200-239 High >239 11 Low <40 Desirable: 40-60 High: >60 12 Desirable: <100 mg/dL Near Optimal: 100-129 mg/dL Borderline High: 130-159 mg/dL High: 160-189 mg/dL Very High: >189 mg/dL 13 SEE RESULT BELOW Name: ZANE HARDIN : [address]: Omaira Warner MD Acct: [id number] Unit: [id number] AGE: 29 Location: [facility] Re10/08/15 SEX: F Status: REG REF SPEC: [id number] MIRIAM: 10/08/15-[address] [facility] [address]: Omaira Warner MD REQ: [id number] RECD: 10/08/159 STATUS: COMP _ SOURCE: VAGINAL [facility]: ORDERED: Angelique,Yeast DNA Procedure Result Reported Site Gardnerella/Yeast: Vaginal DNA Final 10/08/15- 2029 ML Organism 1 Negative Gardnerella Organism 2 Negative Mckayla The presence of G. vaginalis, although suggestive, is not diagnostic for bacterial vaginosis. Results should be interpreted in conjuction with other clinical and laboratory data available. Women with vaginal discharge should be evaluated for risk factors of cervicitis and pelvic inflammatory disease, toxic shock syndrome (S.aureus), and if present, evaluated for organisms not included in this assay such as N. gonorrhoeae, C. trachomatis, Mobiluncus, Mycoplasma and/or Prevotella. Mixed infections may occur. The performance of this test on patient specimens collected during or immediately after antimicrobial therapy is unknown. The presence or absence of Mckayla species, or G. vaginalis cannot be used as a test for therapeutic success or failure. * ML - MAIN LAB ([facility]) . END OF REPORT * ML=Testing performed at Main Lab DEPARTMENT OF PATHOLOGY, [address] [place] [address] Mitesh Garcia M.D. Director [facility] # [id number] 14 The high-risk HPV types detected by the assay include: 16, 18, 31, 33, 35, 39, 45, 51, 52, 56, 58, 59, 66, and 68. 15 GC/Chlamydia Source?: Thin Prep HPV Source?: Thin Prep Trichomonas Source: Thin Prep 16 SEE RESULT BELOW Name: ZANE HARDIN : [address]: Omaira Warner MD Acct: [id number] Unit: [id number] AGE: 29 Location: [facility] Re10/08/15 SEX: F Status: REG REF SPEC: [id number] MIRIAM: 10/08/15-[address] [facility] [address]: Omaira Warner MD REQ: [id number] RECD: 10/08/155625 STATUS: SOUT _ ORDERED: IMAGE ANALYSIS, HPV/Thin Prep, HPV 16/18 GENE FINAL DIAGNOSIS Negative for Intraepithelial lesion or Malignancy A. Ectocervical/Endocervical Specimen Adequacy: Satisfactory of evaluation Transformation zone component identified Patient Information: HPV: High risk HPV RNA testing regardless of pap results. HPV 16/18 Genotype for HPV pos Actual Specimen Date: 10/08/15 Post Menopausal?: N Hysterectomy?: N Previous Abnormal Pap Smears?:N Date Time Test Result Flag (u) Normal Range 10/08/15 1507 HPV RNA RFLX GE Negative Negative The high-risk HPV types detected by the assay include: 16, 18, 31, 33, 35, 39, 45, 51, 52, 56, 58, 59, 66, and 68. Signed (signature on file) ACMRON Rutledge ([facility]) 10/09 1531 This Pap test was evaluated with the assistance of the Patient Education SystemsPrep Test Imaging System. Due to cytologic findings at the test deck supervisor microscope, comprehensive manual rescreening by a Ug Designer may be required. The Pap Smear is a screening test designed to aid in the detection of premalignant and malignant conditions of the uterine cervix. It is not a diagnostic procedure and should not be used as the sole means of detecting cervical cancer. Both false- positive and false- negative reports do occur. Depending on your risk status, a Pap smear should be obtained and evaluated every 1-3 years. END OF REPORT * ML=Testing performed at Main Lab DEPARTMENT OF PATHOLOGY, [address] [place] [address] Mitesh Garcia M.D. Director [facility] # [id number] REFERENCE VALUE Cutoff: 100 18 REFERENCE VALUE Cutoff: 100 19 REFERENCE VALUE Cutoff: 100 20 REFERENCE VALUE Cutoff: 100 21 REFERENCE VALUE Cutoff: 100 22 REFERENCE VALUE Cutoff: 100 23 ADDITIONAL INFORMATION This report is intended for use in clinical monitoring and management of patients. It is not intended for use in employment-related testing. Test Performed by: [facility] - [address] [address] Pheresis Specialist: Justyn Ocampo II, M.D., Ph.D. 24 REFERENCE VALUE Cutoff: 500 25 REFERENCE VALUE Cutoff: 200 26 REFERENCE VALUE Cutoff: 200 27 REFERENCE VALUE Cutoff: 150 28 REFERENCE VALUE Cutoff: 150 29 Presumptive Positive Drug confirmation to follow. Presumptive Positive means that the screening method is positive, but the test needs to be run by a confirmatory method before being finalized. REFERENCE VALUE Cutoff: 300 30 ADDITIONAL INFORMATION This report is intended for use in clinical monitoring or management of patients. It is not intended for use in employment-related testing. 31 Presumptive Positive Drug confirmation to follow. Presumptive Positive means that the screening method is positive, but the test needs to be run by a confirmatory method before being finalized. REFERENCE VALUE Cutoff: 100 ADDITIONAL INFORMATION This report is intended for use in clinical monitoring or management of patients. It is not intended for use in employment-related testing. Test Performed by: [facility] - [address] [address] Pheresis Specialist: Justyn Ocampo II, M.D., Ph.D. 32 Female urine specimens have been self-validated by [facility] and have been granted conditional assay approval by [facility]. 33 RUN DATE: 09/11/14 [facility] LIVE PAGE 1 RUN TIME: [id number] [place] [id number] Specimen Inquiry Name: ZANE HARDIN : [address]: Omaira Warner MD Acct: [id number] Unit: [id number] AGE: 28 Location: [facility] Re09/11/14 SEX: F Status: REG REF SPEC: [id number] MIRIAM: 09/11/14 SUBM DR: Omaira Warner MD REQ: [id number] RECD: 09/11/14 STATUS: COMP _ SOURCE: VAGINAL SPDESC: ORDERED: Angelique,Yeast DNA QUERIES: Provider Requisition # [id number] Procedure Result Verified Site Gardnerella/Yeast: Vaginal DNA Final 09/11/14- 1510 ML Organism 1 POSITIVE GARDNERELLA Organism 2 Negative Mckayla The presence of G. vaginalis, although suggestive, is not diagnostic for bacterial vaginosis. Results should be interpreted in conjuction with other clinical and laboratory data available. Women with vaginal discharge should be evaluated for risk factors of cervicitis and pelvic inflammatory disease, toxic shock syndrome (S.aureus), and if present, evaluated for organisms not included in this assay such as N. gonorrhoeae, C. trachomatis, Mobiluncus, Mycoplasma and/or Prevotella. Mixed infections may occur. The performance of this test on patient specimens collected during or immediately after antimicrobial therapy is unknown. The presence or absence of Mckayla species, or G. vaginalis cannot be used as a test for therapeutic success or failure. END OF REPORT * ML=Testing performed at Main Lab DEPARTMENT OF PATHOLOGY, [address] [place] [address] Mitesh Garcia M.D. Director [facility] # [id number] 34 Desirable <150 Borderline high 150-199 High 200-499 Very High >500 35 Desirable <200 Borderline high 200-239 High >239 36 Low <40 Desirable: 40-60 High: >60 37 Desirable <100 Near Optimal 100-129 Borderline high 130-159 High 160-189 Very High >189 38 Because ethnic data is not always readily available, this report includes an eGFR for both -Americans and non- Americans. The National Kidney Disease Education Program (NKDEP) does not endorse the use of the MDRD equation for patients that are not between the ages of 18 and 70, are , have extremes of body size, muscle mass, or nutritional status, or are non- or non-. According to the National Kidney Foundation, irrespective of diagnosis, the stage of the disease is based on the level of kidney function: Stage Description GFR(mL/min/1.73 m(2)) 1 Kidney damage with normal or decreased GFR 90 2 Kidney damage with mild decrease in GFR 60-89 3 Moderate decrease in GFR 30-59 4 Severe decrease in GFR 15-29 5 Kidney failure <15 (or dialysis) 39 FASTING 10 HOUR 40 Results suggest response to immunization or prior exposure to the virus. -- REFERENCE VALUE -- Vaccinated: Positive (>=1.0 AI) Unvaccinated: Negative (<=0.7 AI) 41 Test Performed by: [place] [address] Pheresis Specialist: Luis Trinidad III, M.D. 42 Results suggest response to immunization or prior exposure to the virus. -- REFERENCE VALUE -- Vaccinated: Positive (>=1.1 AI) Unvaccinated: Negative (<=0.8 AI) 43 Test Performed by: [place] [address] Pheresis Specialist: Luis Trinidad III, M.D. 44 Results suggest response to immunization or prior exposure to the virus. -- REFERENCE VALUE -- Vaccinated: Positive (>=1.1 AI) Unvaccinated: Negative (<=0.8 AI) 45 Test Performed by: [place] [address] Pheresis Specialist: Luis Trinidad III, M.D. 46 Results suggest response to immunization or prior exposure to the virus. -- REFERENCE VALUE -- Vaccinated: Positive (>=1.1 AI) Unvaccinated: Negative (<=0.8 AI) 47 Test Performed by: [place] [address] Pheresis Specialist: Luis Trinidad III, M.D. Procedures Description No Information Encounters Type Date Location Provider CPT E/M Dx Office Visit 11/29/2017 [facility] [place] [address] G56.01 9:30a Laura G56.01 Office Visit 05/16/2017 10:00a [facility] Jacqueline Brandt, N.P. 83789 F41.9 - [place] F90.2 M54.5 Office Visit 04/11/2017 11:30a [facility] Kayla Ryan M.D. 29055 K21.9 - [place] Office Visit 03/20/2017 11:40a [facility] Jacqueline Brandt, N.P. 52008 F41.1 - [place] R19.7 Office Visit 01/11/2017 2:40p [facility] [place] [address] F34.1 M54.5 Office Visit 12/08/2016 10:40a [facility] Jacqueline Brandt, N.P. 68177 F41.9 - [place] Office Visit 11/25/2016 2:40p [facility] Jacqueline Brandt, N.P. 70503 M54.5 - [place] Office Visit 11/16/2016 2:20p [facility] Bebeto Alvares 50546 F34.1 - [place] Long[place] M54.5 Office Visit 05/09/2016 4:20p [facility] Bebeto Alvares 49220 Z02.89 - [place] K59.00 Office Visit 11/12/2015 3:00p [facility] Omaira Warner M.D. 30677 M54.5 - [place] Office Visit 10/16/2015 2:20p [facility] Angel Veras M.D. 72607 M54.5 - [place] K59.00 Office Visit 10/08/2015 2:00p [facility] Omaira Warner M.D. 04785 Z00.00 - [place] Z12.39 Z12.4 E11.65 L70.0 Z82.49 R53.83 Z83.49 Office Visit 09/18/2015 4:20p [facility] Omaira Warner M.D. 14062 M54.5 - [place] Office Visit 09/04/2015 2:20p [facility] Omaira Warner M.D. 20754 M54.5 - [place] Office Visit 08/27/2015 10:20a [facility] Omaira Warner M.D. 68163 M54.5 - [place] Office Visit 08/11/2015 12:40p [facility] Omaira Warner M.D. 70250 M54.5 - [place] M54.6 Office Visit 07/31/2015 11:00a [facility] Omaira Warner M.D. 53277 N92.6 - [place] Office Visit 07/31/2015 4:00p [facility] Omaira Warner M.D. 44135 M54.5 - [place] Office Visit 09/11/2014 8:10a [facility] Omaira Warner M.D. 55123 V76.19 - [place] V76.2 847.2 V74.5 V73.88 623.5 Office Visit 10/24/2013 4:00p [facility] Omaira Warner M.D. 03610 278.00 - [place] 706.1 V70.3 300.02 Office Visit 08/23/2013 2:00p [facility] Omaira Warner M.D. 28142 V70.0 - [place] V17.49 278.00 300.02 Plan of Care No Information Available
--- NOTE | 2018-03-14 18:24 | ED ---
- HPI Summary HPI Summary: 32F LMP January 06 presents with worsening abdominal cramping today. She was seen at an outpatient clinic and had an ultrasound and they're concerned she may have an ectopic. She has had the cramping pain for months. She denies any bleeding. She admits occasional nausea but denies any vomiting. She has been taking Tylenol and codeine for her pain. She denies any diarrhea or constipation. No pain with urination. No abnormal vaginal discharge. She has no medical conditions. - History of Current Complaint Chief Complaint: EDOBProblems Stated Complaint: OB ISSUE/PREG Time Seen by Provider: 03/14/18 18:12 Pain Intensity: 3 - Allergies/Home Medications Allergies/Adverse Reactions: Allergies Allergy/AdvReac Type Severity Reaction Status Date / Time No Known Allergies Allergy Verified 03/14/18 17:40 PMH/Surg Hx/FS Hx/Imm Hx Endocrine/Hematology History: Denies: Hx Anticoagulant Therapy, Hx Diabetes, Hx Thyroid Disease Cardiovascular History: Reports: Other Cardiovascular Problems/Disorders - pre- eclempsia during 1 of her pregnancies Denies: Hx Congestive Heart Failure, Hx Deep Vein Thrombosis, Hx Hypertension , Hx Myocardial Infarction, Hx Pacemaker/ICD Respiratory History: Denies: Hx Asthma, Hx Chronic Obstructive Pulmonary Disease (COPD), Hx Lung Cancer, Hx Pneumonia, Hx Pulmonary Embolism GI History: Denies: Hx Gall Bladder Disease, Hx Gastrointestinal Bleed, Hx Ulcer, Hx Urosepsis History: Denies: Hx Kidney Stones, Hx Renal Disease Musculoskeletal History: Reports: Hx Tendonitis - Rt hand/wrist Neurological History: Denies: Hx Dementia, Hx Migraine, Hx Seizures, Hx Transient Ischemic Attacks (TIA) Psychiatric History: Denies: Hx Anxiety, Hx Depression, Hx Schizophrenia, Hx Bipolar Disorder - Surgical History Surgery Procedure, Year, and Place: n/a - Immunization History Date of Influenza Vaccine: 1208-5642 season Infectious Disease History: No Infectious Disease History: Denies: Traveled Outside the [place] in Last 30 Days - Family History Known Family History: Negative: Cardiac Disease, Hypertension - Social History Alcohol Use: None Hx Substance Use: No Substance Use Type: Reports: None Hx Tobacco Use: Yes Smoking Status (MU): Former Smoker Have You Smoked in the Last Year: Yes Review of Systems Negative: Fever Negative: Chest Pain Negative: Shortness Of Breath Positive: Abdominal Pain, Nausea. Negative: Vomiting All Other Systems Reviewed And Are Negative: Yes Physical Exam - Physical Exam Triage Information Reviewed: Yes Vital Signs Reviewed: Yes Appearance: Positive: Well-Appearing Skin: Positive: Warm, Dry Head/Face: Positive: Normal Head/Face Inspection Eyes: Positive: Normal, Conjunctiva Clear ENT: Positive: Pharynx normal Respiratory/Lung Sounds: Positive: Clear to Auscultation, Breath Sounds Present Cardiovascular: Positive: Normal, RRR Abdomen Description: Positive: Soft, Other: - tenderness in lower abdomen Bowel Sounds: Positive: Present Musculoskeletal: Positive: Normal Neurological: Positive: Normal Psychiatric: Positive: Normal Diagnostics - Vital Signs Vital Signs Temp Pulse Resp BP Pulse Ox 03/14/18 17:37 98.3 F 88 16 139/78 99 - Laboratory Result Diagrams: 03/14/18 18:51 03/14/18 18:51 Lab Statement: Any lab studies that have been ordered have been reviewed, and results considered in the medical decision making process. - Ultrasound No standard instances Ultrasound Interpretation: Positive (See Comments) - single intrauretine gestation sac with yolk sac may be early or failed. Ultrasound Interpretation Completed By: Radiologist Course/Dx - Course Course Of Treatment: 32F LMP January 06 presents with worsening abdominal cramping today. She was seen at an outpatient clinic and had an ultrasound and they're concerned she may have an ectopic. She has had the cramping pain for months. She denies any bleeding. She admits occasional nausea but denies any vomiting. She has been taking Tylenol and codeine for her pain. She denies any diarrhea or constipation. No pain with urination. No abnormal vaginal discharge. She has no medical conditions. On exam has mild lower abdominal pain. wbc 7.3. bcg 1078. B positive blood type. transvaginal u/s shows single intrauretine gestation sac with yolk sac may be early or failed. told to follow up with auction block clerk to trend hcg. patient understand and agrees with plan. - Differential Diagnosis/HQI/PQRI: Threatened , Ectopic , Intrauterine , Early - Diagnoses Provider Diagnoses: Intrauterine Discharge - Sign-Out/Discharge Documenting (check all that apply): Patient Departure - Discharge Plan Condition: Good Disposition: HOME Patient Education Materials: (ED) Referrals: Peggy Higginbotham MD [Medical Doctor] - No Primary Care Phys,NOPCP [Primary Care Provider] - Additional Instructions: Follow up with OBGYN as will need repeat HCG level drawn to trend Return to ED if develop severe abdominal pain, fever, severe bleeding with symptoms such as lightheadedness or any new or worsening symptoms - Billing Disposition and Condition Condition: GOOD Disposition: Home
[2018-03-14 18:56] LABS: ABS Basophils 0.1 10^3/ul (0-0.2); ABS Eosinophils 0.1 10^3/ul (0-0.6); ABS Lymphocytes 2.4 10^3/ul (1.0-4.8); ABS Monocytes 0.5 10^3/ul (0-0.8); ABS Neutrophils 4.1 10^3/ul (1.5-7.7); ABS Nucleated RBC 0 10^3/ul; Eosinophil % 1.9 % (0-6); Hematocrit 35 % (35-47); Hemoglobin 12.1 g/dl (12.0-16.0); Lymphocyte % 32.8 % (25-47); Mean Corpuscular HGB Conc 34 g/dl (31-36); Mean Corpuscular Hemoglobin 31 pg (27-31); Mean Corpuscular Volume 91 fL (80-97); Mean Platelet Volume 7.3 um3 (7.4-10.4); Nucleated Red Blood Cells % 0; Platelet Count 256 10^3/ul (150-450); Red Blood Count 3.87 10^6/ul (4.00-5.40); Red Cell Distribution Width 13 % (10.5-15); White Blood Count 7.3 10^3/ul (3.5-10.8)
[2018-03-14 19:24] LABS: EGFR Non-African American 106.9 (>60)
[2018-03-14] MEDS ORDERED: Acetaminophen TAB* 325 MG PO ONE (21:44)
[2018-03-14 22:37] VITALS: BP 130/92
--- NOTE | 2018-03-15 08:17 | RAD ---
HISTORY: abdominal pain, COMPARISONS: None TECHNIQUE: Multiple transverse and longitudinal ultrasound images were obtained of the pelvis using grayscale, color Doppler, and spectral Doppler imaging using the endovaginal transducer. FINDINGS: UTERUS: The uterus is normal in shape, size, contour, and echotexture. GESTATION: A yolk sac is identified. The mean sac diameter measures 0.57 cm for a gestational age of 5 weeks, 1 day. The AXEL is November 13, 2018. cardiac motion is not suspected. Gross movement is not identified. anatomy cannot be assessed secondary to early dates. The amniotic fluid is qualitatively normal. There are no retroplacental fluid collections. CUL-DE-SAC: There is no free fluid within the cul-de-sac. RIGHT OVARY: The right ovary measures 3.2 x 2.1 x 1.7 cm. Normal arterial and venous waveforms are identifiable within the ovary on spectral Doppler imaging. LEFT OVARY: The left ovary measures 3.6 x 2.2 x 1.7 cm. Normal arterial and venous waveforms are identifiable within the ovary on spectral Doppler imaging. BLADDER: The bladder is not well visualized. IMPRESSION: A YOLK SAC IS IDENTIFIED WITHOUT POLE. THE GESTATIONAL AGE BY MEAN SAC DIAMETER IS 5 WEEKS AND 1 DAY. THIS LIKELY REPRESENTS AN EARLY INTRAUTERINE , THOUGH EARLY FAILURE IS ALSO WITHIN THE DIFFERENTIAL. RECOMMEND CORRELATION WITH SERIAL BETA-HCG LEVELS AND FOLLOW-UP ULTRASOUND. R0
== END 2018-03-14 22:35 | disposition home or self-care (01) ==
LOC: ED 17:31
DX: O26.891 Other specified pregnancy related conditions, first trimester (principal); R10.9 Unspecified abdominal pain; Z3A.01 Less than 8 weeks gestation of pregnancy; Z87.891 Personal history of nicotine dependence
CPT/HCPCS: 36415; 76817; 80053; 84702; 85025; 86850; 86900; 86901; 99282; A9270-GY

== ENCOUNTER 2018-03-15 20:06 | Emergency (ER) | payer OTHER ==
[2018-03-15 20:25] VITALS: BP 136/74
== END 2018-03-15 21:40 | disposition left against medical advice (07) ==
LOC: ED 20:06
DX: O20.9 Hemorrhage in early pregnancy, unspecified (principal); Z3A.01 Less than 8 weeks gestation of pregnancy; Z53.21 Procedure and treatment not carried out due to patient leaving prior to being seen by health care provider

== ENCOUNTER 2018-03-16 10:44 | Emergency (ER) | payer OTHER ==
[2018-03-16] MEDS ORDERED: NS 0.9% 1000 ML* 1,000 ML IV ONE (11:06)
--- NOTE | 2018-03-16 11:10 | ED ---
Complex/Multi-Sys Presentation - HPI Summary HPI Summary: This is scribe Batsheva Roach documenting for attending Bebeto Benson MD. 32 year [facility] [place] [facility] [place] of heavy vaginal bleeding since yesterday evening for which she has used 6 pads. Symptoms aggravated by nothing. Symptoms alleviated by nothing. Patient additionally complains of abdominal cramping. Patient recently found out she was . Patient is 5 weeks . Ruled out for ectopic in ED on 03/14/18, was instructed to return if she started bleeding heavily. LNMP on 01/06/18. . - History Of Current Complaint Chief Complaint: EDOBProblems Time Seen by Provider: 03/16/18 10:58 Hx Obtained From: Patient Onset/Duration: Lasting Days - yesterday evening, Still Present Timing: Constant Aggravating Factor(s): Nothing Alleviating Factor(s): Nothing Associated Signs And Symptoms: Positive: Other - Abdominal cramping - Allergies/Home Medications Allergies/Adverse Reactions: Allergies Allergy/AdvReac Type Severity Reaction Status Date / Time No Known Allergies Allergy Verified 03/16/18 10:45 PMH/Surg Hx/FS Hx/Imm Hx Previously Healthy: No Endocrine/Hematology History: Denies: Hx Anticoagulant Therapy, Hx Diabetes, Hx Thyroid Disease Cardiovascular History: Reports: Other Cardiovascular Problems/Disorders - pre- eclempsia during 1 of her pregnancies Denies: Hx Congestive Heart Failure, Hx Deep Vein Thrombosis, Hx Hypertension , Hx Myocardial Infarction, Hx Pacemaker/ICD Respiratory History: Denies: Hx Asthma, Hx Chronic Obstructive Pulmonary Disease (COPD), Hx Lung Cancer, Hx Pneumonia, Hx Pulmonary Embolism GI History: Denies: Hx Gall Bladder Disease, Hx Gastrointestinal Bleed, Hx Ulcer, Hx Urosepsis History: Denies: Hx Kidney Stones, Hx Renal Disease Musculoskeletal History: Reports: Hx Tendonitis - Rt hand/wrist Neurological History: Denies: Hx Dementia, Hx Migraine, Hx Seizures, Hx Transient Ischemic Attacks (TIA) Psychiatric History: Denies: Hx Anxiety, Hx Depression, Hx Schizophrenia, Hx Bipolar Disorder - Surgical History Surgery Procedure, Year, and Place: n/a - Immunization History Date of Influenza Vaccine: 1928-1098 season Infectious Disease History: No Infectious Disease History: Denies: Traveled Outside the [place] in Last 30 Days - Family History Known Family History: Negative: Cardiac Disease, Hypertension - Social History Alcohol Use: None Hx Substance Use: No Substance Use Type: Reports: None Hx Tobacco Use: Yes Smoking Status (MU): Former Smoker Have You Smoked in the Last Year: Yes Review of Systems Negative: Fever Positive: other - vaginal bleeding, abdominal cramping All Other Systems Reviewed And Are Negative: Yes Physical Exam - Summary Physical Exam Summary: VITAL SIGNS: Reviewed. GENERAL: Patient is an obese female who is lying comfortable in the stretcher. Patient is not in any acute respiratory distress. HEAD AND FACE: No signs of trauma. No ecchymosis, hematomas or skull depressions. No sinus tenderness. EYES: PERRLA, EOMI x 2, No injected conjunctiva, no nystagmus. EARS: Hearing grossly intact. Ear canals and tympanic membranes are within normal limits. MOUTH: Oropharynx within normal limits. NECK: Supple, trachea is midline, no adenopathy, no JVD, no carotid bruit, no c- spine tenderness, neck with full ROM. CHEST: Symmetric, no tenderness at palpation LUNGS: Clear to auscultation bilaterally. No wheezing or crackles. CVS: Regular rate and rhythm, S1 and S2 present, no murmurs or gallops appreciated. ABDOMEN: Abdomen is soft, obese, and non-tender with positive bowel sounds EXTREMITIES: FROM in all major joints, no edema, no cyanosis or clubbing. NEURO: Alert and oriented x 3. No acute neurological deficits. Speech is normal and follows commands. SKIN: Dry and warm PELVIC EXAM: [facility] aide, in room as witness during this exam. External genitalia is within normal limits. The speculum exam shows normal vaginal rodriguez and no lesions. There is a small amount of dark blood. The cervix is closed. No cervical motion tenderness. Triage Information Reviewed: Yes Vital Signs On Initial Exam: Initial Vitals Temp Pulse Resp BP Pulse Ox 98.8 F 101 16 129/89 98 03/16/18 10:46 03/16/18 10:46 03/16/18 10:46 03/16/18 10:46 03/16/18 10:46 Vital Signs Reviewed: Yes Diagnostics - Vital Signs Vital Signs Temp Pulse Resp BP Pulse Ox 03/16/18 10:46 98.8 F 101 16 129/89 98 - Laboratory Result Diagrams: 03/16/18 11:19 03/16/18 11:19 Lab Statement: Any lab studies that have been ordered have been reviewed, and results considered in the medical decision making process. - Additional Comments Diagnostic Additional Comments: Transvaginal US, per radiologist, shows THE GESTATIONAL SAC NOTED ON THE February EXAMINATION IS NO LONGER EVIDENT. THERE IS THICKENING OF THE ENDOMETRIUM. GIVEN THE CHANGE FROM THE PREVIOUS EXAMINATION, THIS IS CONCERNING FOR EARLY FAILURE. RECOMMEND CORRELATION WITH SERIAL BETA-HCG LEVELS AND FOLLOW-UP IMAGING. ED physician has reviewed this report. Complex Multi-Symp Course/Dx Course Of Treatment: This patient is a 32-year-old female who presents to the emergency department with a chief complaint of vaginal bleeding and abdominal cramping. She reports that she is 5 weeks , she is in . She reports that she is not having vaginal bleeding just to the night and she has had multiple pads with blood. Assessment/Plan: Blood work without any significant abnormality except for an beta hCG quantitative at 356 which has decreased from an thousand and 78 today' s ago. Please refer to today's ultrasound result. At this point I discussed the case with Dr. Young from [employer] [facility] and he recommends for the patient to be discharged home with follow-up at the office. He thinks that the patient having is having a miscarriage, and at this point here the patient is hemodynamically stable and alert and oriented 3 she can be discharged home with follow-up with her office. The patient's Rh is B+ therefore, she doesn't need any RhoGAM at this point. I discussed the findings and test results with the patient and significant other and they understand and agree. Concerns were addressed and there is no further question. The patient was instructed to return to the emergency department if she continues to have more bleeding more abdominal pain. She understands and agrees. - Diagnoses Differential Diagnoses/HQI/PQRI: Other - Threatened miscarriage, ectopic , miscarriage Provider Diagnoses: Miscarriage - Physician Notifications Discussed Care Of Patient With: Celso Le Time Discussed With Above Provider: 12:39 Instructed by Provider To: Other - Dr. Le, OBGYN, advises that patient should follow up with him in his office. Discharge - Sign-Out/Discharge Documenting (check all that apply): Patient Departure - Discharge - Discharge Plan Condition: Stable Disposition: HOME Patient Education Materials: Miscarriage (ED) Referrals: No Primary Care Phys,NOPCP [Primary Care Provider] - Celso Le MD [Medical Doctor] - 3 Days Additional Instructions: Follow up with SALENA Castro, in 3 days. Return to the Emergency Department for new or worsening symptoms.
[2018-03-16 11:39] LABS: ABS Basophils 0.1 10^3/ul (0-0.2); ABS Eosinophils 0.1 10^3/ul (0-0.6); ABS Lymphocytes 1.7 10^3/ul (1.0-4.8); ABS Monocytes 0.3 10^3/ul (0-0.8); ABS Nucleated RBC 0 10^3/ul; Eosinophil % 1.9 % (0-6); Hematocrit 39 % (35-47); Hemoglobin 13.1 g/dl (12.0-16.0); Lymphocyte % 27.5 % (25-47); Mean Corpuscular HGB Conc 34 g/dl (31-36); Mean Corpuscular Hemoglobin 31 pg (27-31); Mean Corpuscular Volume 92 fL (80-97); Mean Platelet Volume 7.3 um3 (7.4-10.4); Nucleated Red Blood Cells % 0; Platelet Count 284 10^3/ul (150-450); Red Blood Count 4.21 10^6/ul (4.00-5.40); Red Cell Distribution Width 14 % (10.5-15); White Blood Count 6.2 10^3/ul (3.5-10.8)
[2018-03-16 11:54] LABS: Urine Appearance Cloudy; Urine Blood 3+ (Negative); Urine Color Yellow; Urine Ketones Negative (Negative); Urine Protein 1+(30 mg/dL) (Negative); Urine Red Blood Cell 3+(>10/hpf) (Absent); Urine Specific Gravity 1.023 (1.010-1.030); Urine Urobilinogen Negative (Negative); Urine White Blood Cell 1+(6-10/hpf) (Absent)
[2018-03-16 11:56] LABS: EGFR Non-African American 94.8 (>60)
--- NOTE | 2018-03-16 12:16 | RAD ---
HISTORY: 5 weeks and vaginal bleeding COMPARISONS: March 14, 2018 TECHNIQUE: Multiple transverse and longitudinal ultrasound images were obtained of the pelvis using grayscale, color Doppler, and spectral Doppler imaging using the transabdominal and endovaginal transducers. FINDINGS: UTERUS: The uterus measures 10.3 x 6.1 x 5.6 cm. The uterus is normal in shape, size, contour, and echotexture. Cervical nabothian cysts are noted.. ENDOMETRIUM: The endometrium is thickened.. The gestational sac noted on the previous examination is not evident on the current examination.. The endometrium measures 0.9 cm in thickness. There is no hypervascular material to suggest retained products of conception. CUL-DE-SAC: There is no free fluid within the cul-de-sac. RIGHT OVARY: The right ovary measures 4.7 x 1.8 x 2.5 cm. Normal arterial and venous waveforms are identifiable within the ovary on spectral Doppler imaging. LEFT OVARY: The left ovary is not well-visualized BLADDER: The bladder is not well visualized. OTHER: Fluid is noted in the vaginal canal. IMPRESSION: THE GESTATIONAL SAC NOTED ON THE MARCH 14, 2018 EXAMINATION IS NO LONGER EVIDENT. THERE IS THICKENING OF THE ENDOMETRIUM. GIVEN THE CHANGE FROM THE PREVIOUS EXAMINATION, THIS IS CONCERNING FOR EARLY FAILURE. RECOMMEND CORRELATION WITH SERIAL BETA-HCG LEVELS AND FOLLOW-UP IMAGING..
[2018-03-16] MEDS ORDERED: Ketorolac INJ* 60 MG/2 ML VIAL IM ONE (13:14)
[2018-03-16 13:43] VITALS: BP 124/78
--- NOTE | 2018-03-19 16:31 | ED ---
Progress - Progress Note Progress Note: Patient's final urine culture reveals 1-10,000 strep group B and 75-100,000 normal mary jo. Patient was diagnosed with miscarriage. No further action at this time. Course/Dx - Course Course Of Treatment: This patient is a 32-year-old female who presents to the emergency department with a chief complaint of vaginal bleeding and abdominal cramping. She reports that she is 5 weeks , she is in . She reports that she is not having vaginal bleeding just to the night and she has had multiple pads with blood. - Diagnoses Provider Diagnoses: Miscarriage - Provider Notifications Time Discussed With Above Provider: 12:39 Instructed by Provider To: Other - SALENA Castro, advises that patient should follow up with him in his office. Discharge - Sign-Out/Discharge Documenting (check all that apply): Post-Discharge Follow Up - Discharge Plan Condition: Stable Disposition: HOME Prescriptions: HYDROcodone/ACETAMIN 5-325 MG* [[place] 5-325 TAB*] 1 tab PO Q6H PRN #10 tab MDD 4 PRN Reason: Pain Patient Education Materials: Miscarriage (ED) Referrals: No Primary Care Phys,NOPCP [Primary Care Provider] - Celso Le MD [Medical Doctor] - 3 Days Additional Instructions: Follow up with SALENA Castro, in 3 days. Return to the Emergency Department for new or worsening symptoms. - Billing Disposition and Condition Condition: STABLE Disposition: Home
== END 2018-03-16 13:40 | disposition home or self-care (01) ==
LOC: ED 10:44
DX: O03.9 Complete or unspecified spontaneous abortion without complication (principal); Z87.891 Personal history of nicotine dependence
CPT/HCPCS: 36415; 76817; 80053; 81003; 81015; 84702; 85025; 86140; 86900; 86901; 87086; 96372; 99282; J1885

== ENCOUNTER 2018-08-10 23:34 | Emergency (ER) | payer BC, OTHER ==
--- NOTE | 2018-08-11 00:33 | ED ---
GI/ HPI - HPI Summary HPI Summary: Patient complains of vaginal spotting 2 days with blood clots passing this a.m. , and bilateral lower abdominal cramping starting today. Abdominal cramping described as intermittent. Patient states positive test 5 days ago. Denies fever, cough, sore throat, CP, SOB, N/V/D, change in urine, change in BM , vaginal discharge or pain. Medical history is none. Abdominal surgical history is none. , with history of multiple spontaneous miscarriages. Last menstrual period 5 months ago during pror spontaneous miscarriage. - History of Current Complaint Chief Complaint: EDOBProblems Time Seen by Provider: 08/10/18 23:53 Stated Complaint: VAGINAL BLEEDING Hx Obtained From: Patient Hx Last Menstrual Period: about 4 days ago Onset/Duration: Started Days Ago Timing: Intermittent Severity: Mild Current Severity: Moderate Pain Intensity: 7 Location of Pain: RLQ, LLQ, Suprapubic Pain Characteristics: Cramping Additional Signs & Symptoms: Positive: Vaginal Bleeding Aggravating Factor(s): Nothing Alleviating Factor(s): Nothing - Allergy/Home Medications Allergies/Adverse Reactions: Allergies Allergy/AdvReac Type Severity Reaction Status Date / Time No Known Allergies Allergy Verified 08/10/18 23:43 PMH/Surg Hx/FS Hx/Imm Hx Endocrine/Hematology History: Denies: Hx Anticoagulant Therapy, Hx Diabetes, Hx Thyroid Disease Cardiovascular History: Reports: Other Cardiovascular Problems/Disorders - pre- eclempsia during 1 of her pregnancies Denies: Hx Congestive Heart Failure, Hx Deep Vein Thrombosis, Hx Hypertension , Hx Myocardial Infarction, Hx Pacemaker/ICD Respiratory History: Denies: Hx Asthma, Hx Chronic Obstructive Pulmonary Disease (COPD), Hx Lung Cancer, Hx Pneumonia, Hx Pulmonary Embolism GI History: Denies: Hx Gall Bladder Disease, Hx Gastrointestinal Bleed, Hx Ulcer, Hx Urosepsis History: Denies: Hx Kidney Stones, Hx Renal Disease Musculoskeletal History: Reports: Hx Tendonitis - Rt hand/wrist Neurological History: Denies: Hx Dementia, Hx Migraine, Hx Seizures, Hx Transient Ischemic Attacks (TIA) Psychiatric History: Denies: Hx Anxiety, Hx Depression, Hx Schizophrenia, Hx Bipolar Disorder - Surgical History Surgery Procedure, Year, and Place: n/a - Immunization History Date of Influenza Vaccine: 2371-0625 season Infectious Disease History: No Infectious Disease History: Denies: Traveled Outside the [place] in Last 30 Days - Family History Known Family History: Negative: Cardiac Disease, Hypertension - Social History Alcohol Use: None Hx Substance Use: No Substance Use Type: Reports: None Hx Tobacco Use: Yes Smoking Status (MU): Former Smoker Have You Smoked in the Last Year: Yes Review of Systems Constitutional: Negative Eyes: Negative ENT: Negative Cardiovascular: Negative Respiratory: Negative Positive: Abdominal Pain Genitourinary: Negative Musculoskeletal: Negative Skin: Negative Neurological: Negative Psychological: Normal All Other Systems Reviewed And Are Negative: Yes Physical Exam - Summary Physical Exam Summary: Mild tenderness bilaterally in lower abdomen, abdominal exam otherwise unremarkable. Triage Information Reviewed: Yes Vital Signs On Initial Exam: Initial Vitals Temp Pulse Resp BP Pulse Ox 98.4 F 91 12 121/74 100 08/10/18 23:41 08/10/18 23:41 08/10/18 23:41 08/10/18 23:41 08/10/18 23:41 Vital Signs Reviewed: Yes Appearance: Positive: Well-Appearing Skin: Positive: Warm Head/Face: Positive: Normal Head/Face Inspection Eyes: Positive: Normal Neck: Positive: Supple Respiratory/Lung Sounds: Positive: Clear to Auscultation Cardiovascular: Positive: Normal Abdomen Description: Positive: Other: Musculoskeletal: Positive: Normal Neurological: Positive: Normal Psychiatric: Positive: Normal AVPU Assessment: Alert - Asmita Coma Scale Best Eye Response: 4 - Spontaneous Best Motor Response: 6 - Obeys Commands Best Verbal Response: 5 - Oriented Coma Scale Total: 15 Diagnostics - Vital Signs Vital Signs Temp Pulse Resp BP Pulse Ox 08/10/18 23:41 98.4 F 91 12 121/74 100 - Laboratory Result Diagrams: 08/11/18 00:20 08/11/18 00:15 Lab Statement: Any lab studies that have been ordered have been reviewed, and results considered in the medical decision making process. GIGU Course/Dx - Course Course Of Treatment: Patient complains of vaginal spotting 2 days with blood clots passing this a.m., and bilateral lower abdominal cramping starting today. Abdominal cramping described as intermittent. Patient states positive test 5 days ago. Denies fever, cough, sore throat, CP, SOB, N/V/D, change in urine, change in BM, vaginal discharge or pain. Medical history is none. Abdominal surgical history is none. , with history of multiple spontaneous miscarriages. Last menstrual period 5 months ago during pror spontaneous miscarriage. Physical exam:Mild tenderness bilaterally in lower abdomen, abdominal exam otherwise unremarkable. Vital signs within normal limits. Ultrasound positive for IUP at 6 weeks. Patient blood type B+, no indication for Rhogam. Patient has been advised to get repeat hCG in 2 days. Patient has follow-up appointment with OB on Monday. - Diagnoses Provider Diagnoses: Threatened miscarriage Discharge - Sign-Out/Discharge Documenting (check all that apply): Patient Departure - Discharge Plan Condition: Stable Disposition: HOME Patient Education Materials: Threatened Miscarriage (ED) Referrals: No Primary Care Phys,NOPCP [Primary Care Provider] - Sameer Blanton MD [Medical Doctor] - Additional Instructions: Tylenol for pain. Repeat hCG levels in 2 days. Follow-up at your already scheduled appointment with [facility] on Monday. Return to the ED for any new or worsening symptoms - Billing Disposition and Condition Condition: STABLE Disposition: Home
[2018-08-11 00:38] LABS: ABS Basophils 0.1 10^3/ul (0-0.2); ABS Eosinophils 0.2 10^3/ul (0-0.6); ABS Lymphocytes 2.6 10^3/ul (1.0-4.8); ABS Monocytes 0.5 10^3/ul (0-0.8); ABS Neutrophils 4.4 10^3/ul (1.5-7.7); ABS Nucleated RBC 0 10^3/ul; Hematocrit 37 % (35-47); Hemoglobin 12.6 g/dl (12.0-16.0); Lymphocyte % 33.2 %; Mean Corpuscular HGB Conc 34 g/dl (31-36); Mean Corpuscular Hemoglobin 31 pg (27-31); Mean Corpuscular Volume 93 fL (80-97); Mean Platelet Volume 7.4 fL (7.4-10.4); Nucleated Red Blood Cells % 0.1; Platelet Count 298 10^3/ul (150-450); Red Blood Count 4.01 10^6/ul (4.00-5.40); Red Cell Distribution Width 14 % (10.5-15); White Blood Count 7.7 10^3/ul (3.5-10.8)
[2018-08-11 01:06] LABS: Urine Appearance Cloudy; Urine Blood 3+ (Negative); Urine Color Yellow; Urine Ketones Negative (Negative); Urine Protein 1+(30 mg/dL) (Negative); Urine Red Blood Cell 3+(>10/hpf) (Absent); Urine Specific Gravity 1.025 (1.010-1.030); Urine Urobilinogen Negative (Negative); Urine White Blood Cell Trace(0-5/hpf) (Absent)
[2018-08-11 01:27] VITALS: BP 128/83
== END 2018-08-11 01:29 | disposition home or self-care (01) ==
LOC: ED 23:34
DX: O20.0 Threatened abortion (principal); Z3A.01 Less than 8 weeks gestation of pregnancy
CPT/HCPCS: 36415; 76817; 80053; 81003; 81015; 84702; 85025; 86140; 86703; 87086; 99282

== ENCOUNTER 2018-10-30 12:28 | Emergency (ER) | payer SELFPAY ==
[2018-10-30] MEDS ORDERED: Ketorolac INJ* 60 MG/2 ML VIAL IM ONE (13:12)
[2018-10-30 13:35] VITALS: BP 159/100
--- NOTE | 2018-10-31 07:47 | ED ---
Throat Pain/Nasal Congestion - HPI Summary HPI Summary: Patient is a 32-year-old female presenting to the ED with medication request. She states a few days ago she was diagnosed with a mandible fracture from a trauma. She was given hydrocodone/acetaminophen 53 25 which she is to use one every 4-6 hours, however she states she has been using one every 2 hours due to the severe pain. She is tearful on arrival. She is also stating she called our maxillofacial surgeon and they had advised her to go to [place] as they "do not do that procedure anymore." She remains tearful as she states she does not have a car and has no way to get to [place]. She is able to still eat and drink okay, but with pain. Denies any fevers or other concerns at this time. - History of Current Complaint Chief Complaint: EDFacialInjury Time Seen by Provider: 10/30/18 12:55 Hx Obtained From: Patient Onset/Duration: Sudden Onset Severity: Severe - Epiglottits Risk Factors Epiglottis Risk Factors: Negative - Allergies/Home Medications Allergies/Adverse Reactions: Allergies Allergy/AdvReac Type Severity Reaction Status Date / Time No Known Allergies Allergy Verified 10/30/18 12:35 PMH/Surg Hx/FS Hx/Imm Hx Previously Healthy: Yes Endocrine/Hematology History: Denies: Hx Anticoagulant Therapy, Hx Diabetes, Hx Thyroid Disease Cardiovascular History: Reports: Other Cardiovascular Problems/Disorders - pre- eclempsia during 1 of her pregnancies Denies: Hx Congestive Heart Failure, Hx Deep Vein Thrombosis, Hx Hypertension , Hx Myocardial Infarction, Hx Pacemaker/ICD Respiratory History: Denies: Hx Asthma, Hx Chronic Obstructive Pulmonary Disease (COPD), Hx Lung Cancer, Hx Pneumonia, Hx Pulmonary Embolism GI History: Denies: Hx Gall Bladder Disease, Hx Gastrointestinal Bleed, Hx Ulcer, Hx Urosepsis History: Denies: Hx Kidney Stones, Hx Renal Disease Musculoskeletal History: Reports: Hx Tendonitis - Rt hand/wrist Sensory History: Denies: Hx Eye Prosthesis, Hx Deafness Opthamlomology History: Denies: Hx Eye Prosthesis Neurological History: Denies: Hx Dementia, Hx Migraine, Hx Seizures, Hx Transient Ischemic Attacks (TIA) Psychiatric History: Denies: Hx Anxiety, Hx Depression, Hx Schizophrenia, Hx Bipolar Disorder - Surgical History Surgery Procedure, Year, and Place: n/a - Immunization History Date of Influenza Vaccine: [id number] season Hx Pertussis Vaccination: No Immunizations Up to Date: Yes Infectious Disease History: No Infectious Disease History: Denies: Traveled Outside the [place] in Last 30 Days - Family History Known Family History: Negative: Cardiac Disease, Hypertension - Social History Occupation: Unemployed Lives: Alone Alcohol Use: None Hx Substance Use: No Substance Use Type: Reports: None Hx Tobacco Use: Yes Smoking Status (MU): Former Smoker Have You Smoked in the Last Year: Yes Review of Systems Constitutional: Negative Negative: Fever, Chills, Fatigue, Skin Diaphoresis Positive: Dental Pain - left mandible pain. Negative: Epistaxis Negative: Palpitations, Chest Pain Negative: Shortness Of Breath, Cough Genitourinary: Negative Positive: no symptoms reported, see HPI Negative: Arthralgia, Myalgia Skin: Negative Neurological: Negative All Other Systems Reviewed And Are Negative: Yes Physical Exam Triage Information Reviewed: Yes Vital Signs On Initial Exam: Initial Vitals Temp Pulse Resp BP Pulse Ox 98.3 F 82 20 155/106 100 10/30/18 12:34 10/30/18 12:34 10/30/18 12:34 10/30/18 12:34 10/30/18 12:34 Vital Signs Reviewed: Yes Appearance: Positive: Well-Appearing, Well-Nourished Skin: Positive: Warm, Skin Color Reflects Adequate Perfusion Head/Face: Positive: Other - left mandible tenderness to palpation Eyes: Positive: EOMI, BOB, Conjunctiva Clear Neck: Positive: Supple, No Lymphadenopathy Respiratory/Lung Sounds: Positive: Clear to Auscultation, Breath Sounds Present Cardiovascular: Positive: RRR, Pulses are Symmetrical in both Upper and Lower Extremities Musculoskeletal: Positive: Strength/ROM Intact Neurological: Positive: Speech Normal Psychiatric: Positive: Affect/Mood Appropriate AVPU Assessment: Alert Diagnostics - Vital Signs Vital Signs Temp Pulse Resp BP Pulse Ox 10/30/18 13:34 97.9 F 84 22 159/100 100 10/30/18 12:34 98.3 F 82 20 155/106 100 - Laboratory Lab Statement: Any lab studies that have been ordered have been reviewed, and results considered in the medical decision making process. EENT Course/Dx - Course Course Of Treatment: Patient is evaluated for a recent jaw fracture with a medication request. Patient has hydrocodone/acetaminophen 5-325 in which she has approximately 6 left. She states she is unable to see a maxillofacial surgeon here in the [place] area as she has tried to follow-up and was unable to get to [place] due to having no vehicle. She does admit to having Medicaid. I have agreed to extend and increased her dose at this time of hydrocodone/ acetaminophen. She is also given information on how to obtain Medicaid cab to [place] to see a maxillofacial surgeon. She is okay with this plan and will be discharged at this time. She is given pain medication while in the ED. - Differential Diagnoses Differential Diagnoses: Fracture - Diagnoses Provider Diagnoses: Medication requested Discharge - Sign-Out/Discharge Documenting (check all that apply): Patient Departure Patient Received Moderate/Deep Sedation with Procedure: No - Discharge Plan Condition: Stable Disposition: HOME Prescriptions: Hydrocodone/Acetamin 10/325(NF [[place] 10/325 (NF)] 1 tab PO Q8H #12 tab MDD 4 Ketorolac TAB * [Toradol TAB *] 10 mg PO Q6H #16 tab Patient Education Materials: Facial Fracture (ED) Referrals: No Primary Care Phys,NOPCP [Primary Care Provider] - Additional Instructions: Please follow up with maxillofacial surgery in [place] Call Medicaid today I have given you extra pain medication and you are able to take up to 10mg three times daily as needed Continue to take ibuprofen 600mg three times daily Ice to the area Eat soft foods and liquids - Billing Disposition and Condition Condition: STABLE Disposition: Home
== END 2018-10-30 13:34 | disposition home or self-care (01) ==
LOC: ED 12:28
DX: S02.609D Fracture of mandible, unspecified, subsequent encounter for fracture with routine healing (principal); X58.XXXD Exposure to other specified factors, subsequent encounter; Z76.0 Encounter for issue of repeat prescription; Z87.891 Personal history of nicotine dependence
CPT/HCPCS: 96372; 99282; J1885

== ENCOUNTER 2019-09-22 07:10 | Inpatient (IN) | payer OTHER ==
[2019-09-22] MEDS ORDERED: Penicillin G Potassium IV* 5,000,000 UNITS in NS 0.9% 100 ML* 100 ML IVPB ONE (08:30)
[2019-09-22 08:38] LABS: ABS Eosinophils 0.1 10^3/ul (0-0.6); ABS Lymphocytes 1.4 10^3/ul (1.0-4.8); ABS Monocytes 0.3 10^3/ul (0-0.8); ABS Neutrophils 2.7 10^3/ul (1.5-7.7); Eosinophil % 2.1 %; Hematocrit 35 % (35-47); Hemoglobin 12.2 g/dL (12.0-16.0); Lymphocyte % 31.6 %; Mean Corpuscular HGB Conc 35 g/dL (31-36); Mean Corpuscular Hemoglobin 32 pg (27-31); Mean Corpuscular Volume 90 fL (80-97); Mean Platelet Volume 8.2 fL (7.4-10.4); Nucleated Red Blood Cells % 0.1; Platelet Count 231 10^3/uL (150-450); Red Blood Count 3.86 10^6 /uL (3.70-4.87); Red Cell Distribution Width 14 % (10-15); White Blood Count 4.6 10^3/uL (3.5-10.8)
[2019-09-22 08:57] LABS: Urine Benzodiazepine Screen None Detected (None Detect); Urine Opiates Screen None Detected (None Detect)
[2019-09-22] MEDS ORDERED: Betamethasone INJ* 6 MG/ML 5 ML VIAL (30 MG) IM ONE (10:00)
[2019-09-22] MEDS ORDERED: Buffered Lidocaine 1% SYRIN* 1 ML/SYRINGE INTRADERM ONE (10:26)
--- NOTE | 2019-09-22 10:45 | HP ---
General Information - Reason for Visit ROM @ 6am. Leaking minimal clear fluid since - General Information Maternal Age: 33 Grav: 10 Para: 4 SAB: 3 IEA: 2 Estimated Due Date: 10/16/19 Determined By: LMP Gestational Age in Weeks/Days: 36.4 Maternal Blood Type and Rh: B Positive - Results this Serology/RPR Result: Non-Reactive Rubella Result: Immune HBsAg Result: Negative HIV Result: Negative Past Medical History Delivery History: Hx Complicated Vaginal Delivery - 20 PTD of twins Pertinent Past Medical History: See Records - RA diagnosed during this started hydroxychloroquine Pertinent Past Surgical History: See Records Pertinent Family History: Non-Contributory - Antepartal Records Antepartal Records: Reviewed, Uncomplicated Review of Systems Constitutional: Comfortable CV Complaint: No Respiratory: Shortness of Breath: No Gastrointestinal: No Nausea/Vomiting, Normal Bowel Movement Genitourinary: Leaking Fluid, No Dysuria, No Bleeding Musculoskeletal: No Complaint - +BH Neurological: No Headache - currently none but does get migraines Movement: Normal Exam Allergies/Adverse Reactions: Allergies No Known Allergies Allergy (Verified 09/22/19 07:47) Lab Values - Entire Visit: Laboratory Tests 09/22/19 09/22/19 09/22/19 07:30 08:20 08:20 WBC 4.6 RBC 3.86 Hgb 12.2 Hct 35 MCV 90 MCH 32 H MCHC 35 RDW 14 Plt Count 231 MPV 8.2 Neut % (Auto) 58.8 Lymph % (Auto) 31.6 [place] % (Auto) 6.6 Eos % (Auto) 2.1 Baso % (Auto) 0.9 Absolute Neuts (auto) 2.7 Absolute Lymphs (auto) 1.4 Absolute Monos (auto) 0.3 Absolute Eos (auto) 0.1 Absolute Basos (auto) 0.0 Absolute Nucleated RBC 0.0 Nucleated RBC % 0.1 Vag Amniotic Fld Detect Positive Urine Opiates Screen None detected Ur Barbiturates Screen None detected Ur Phencyclidine Scrn None detected Ur Amphetamines Screen None detected U Benzodiazepines Scrn None detected Urine Cocaine Screen None detected U Cannabinoids Screen None detected Blood Type Antibody Screen 09/22/19 08:20 WBC RBC Hgb Hct MCV MCH MCHC RDW Plt Count MPV Neut % (Auto) Lymph % (Auto) [place] % (Auto) Eos % (Auto) Baso % (Auto) Absolute Neuts (auto) Absolute Lymphs (auto) Absolute Monos (auto) Absolute Eos (auto) Absolute Basos (auto) Absolute Nucleated RBC Nucleated RBC % Vag Amniotic Fld Detect Urine Opiates Screen Ur Barbiturates Screen Ur Phencyclidine Scrn Ur Amphetamines Screen U Benzodiazepines Scrn Urine Cocaine Screen U Cannabinoids Screen Blood Type B Positive Antibody Screen Negative - Measurements Height: 5 ft 5 in Weight: 234 lb Weight in lbs: [phone] Body Mass Index (BMI): 38.9 Pre- Weight: 225 lb Weight Gained This : 9 lbs and 0 ozs - Exam Breast: Breast Exam Deferred Extremities: No Edema Heart: Normal Rhythm/Heart Sounds HEENT: No Significant Findings Rectal: Rectal Exam Deferred - Abdominal Exam Abdomen Exam: Non-Tender - Ultrasound/Biophysical Profile Ultrasound Status: Bedside Exam Ultrasound Findings: Vtx, VINNY 9, Good FM and breathing noted Biophysical Profile: Normal Amniotic Fluid, Normal Gross Body Movements, Normal Muscle Tone, Normal Breathing, Normal Reactive NST Biophysical Total Score (2 points each): 10 Biophysical Profile - Points Available: 10 Points
[2019-09-22] MEDS ORDERED: Oxytocin in LR* 20 UNITS/1,000 ML BAG IVPB SCH (11:00)
[2019-09-22] MEDS: Lactated Ringers 1000 ML Bag* 1,000 ML IV SCH ×2 (11:15→15:30)
[2019-09-22] MEDS: Lactated Ringers 1000 ML Bag* 1,000 ML IV ONE (11:15)
[2019-09-22] MEDS: Penicillin G Potassium IV* 3,000,000 UNITS in NS 0.9% 100 ML* 100 ML IVPB SCH ×2 (12:37→16:40)
[2019-09-22] MEDS ORDERED: OBEPIDURAL* 250 ML EPIDURAL ONE (16:59)
[2019-09-22] MEDS ORDERED: Phenylephrine 40 MCG/ML SYRINGE IV PUSH PRN ×2 (17:41)
[2019-09-22] MEDS ORDERED: Famotidine TAB* 20 MG PO PRN (17:41)
[2019-09-22] MEDS ORDERED: EPHEDrine (Pressors)* 50 MG/ML VIAL IV PUSH PRN ×2 (17:41)
[2019-09-22] MEDS ORDERED: Lactated Ringers 1000 ML Bag* 1,000 ML IV ONE (17:41)
[2019-09-22] MEDS ORDERED: Sodium Citrate/Citric Acid* 15 ML UDC PO PRN (17:41)
[2019-09-22] MEDS ORDERED: OBEPIDURAL* 250 ML EPIDURAL SCH (18:00)
[2019-09-22] MEDS ORDERED: Lactated Ringers 1000 ML Bag* 1,000 ML IV SCH ×2 (18:00→19:00)
[2019-09-22] MEDS ORDERED: Glycerin ADULT SUPP PR PRN (18:51)
[2019-09-22] MEDS ORDERED: Dibucaine 1% 28.35 GM TUBE PR PRN (18:51)
[2019-09-22] MEDS ORDERED: Witch Hazel PAD* JAR TOPICAL PRN (18:51)
--- NOTE | 2019-09-22 18:57 | PROCNOTE ---
[facility] OB: Delivery Note - Delivery A Date of : 09/22/19 Time of : 18:29 Gestational Age in Weeks and Days at Delivery: 36 Weeks and 4 Days Delivery Method: Spontaneous Vaginal Labor: Induced Did Patient attempt ?: N/A, No Previous Amniotic Fluid: Clear Estimated Blood Loss: 300 Anesthesia/Analgesia: CEI for Labor Delivered By: Peggy Higginbotham - Nursery Level of Nursery: Regular/Bedside - Perineum Perineal Injury: None/Intact Perineal Repair: None - Events Delivery Events of Note: Pitocin During Labor, Precipitous Delivery, Full Course of Antibiotics, Steriods Given for Lung Maturity - Additional Delivery Notes Additional Delivery Notes: Pt experienced ROM @6am. When she had not progressed into labor by 10am pitocin was started. She progressed slowly, received an epidural and then pushed 5min to deliver the 's head in MENA position with 1 loose nuchal cord reduced easily followed by the rest of the body. The baby was placed on mom's abdomen. After >1 min the cord was clamped x2 and cut by dad. Cord blood collected. Placenta delivered with fundal massage and gentle cord traction. Small increase of bleeding improved with fundal massage. mom and baby stable at time of note.
[2019-09-22] MEDS ORDERED: Simethicone TAB* 80 MG TAB.CHEW PO SCH (21:00)
[2019-09-22] MEDS: Docusate CAP* 100 MG PO SCH (21:56)
[2019-09-22] MEDS: Ibuprofen TAB* 600 MG PO PRN (21:56)
[2019-09-23] MEDS ORDERED: OXYTOCIN* 10 UNITS/ML 1 ML VIAL ONE (02:00)
[2019-09-23] MEDS: Ibuprofen TAB* 600 MG PO PRN ×3 (04:55→20:14)
[2019-09-23 06:43] LABS: ABS Lymphocytes 2.1 10^3/ul (1.0-4.8); ABS Neutrophils 8.1 10^3/ul (1.5-7.7); Eosinophil % 0.1 %; Hematocrit 28 % (35-47); Hemoglobin 9.9 g/dL (12.0-16.0); Lymphocyte % 18.6 %; Mean Corpuscular HGB Conc 36 g/dL (31-36); Mean Corpuscular Hemoglobin 32 pg (27-31); Mean Corpuscular Volume 91 fL (80-97); Platelet Count 211 10^3/uL (150-450); Red Blood Count 3.08 10^6 /uL (3.70-4.87); Red Cell Distribution Width 13 % (10-15); White Blood Count 11.2 10^3/uL (3.5-10.8)
[2019-09-23] MEDS: Lactated Ringers 1000 ML Bag* 1,000 ML IV ONE (08:12)
[2019-09-23] MEDS: Penicillin G Potassium IV* 3,000,000 UNITS in NS 0.9% 100 ML* 100 ML IVPB SCH (08:12)
[2019-09-23] MEDS: Ferrous Gluconate TAB* 324 MG TAB PO SCH ×2 (08:59→20:15)
[2019-09-23] MEDS: Docusate CAP* 100 MG PO SCH ×3 (08:59→20:14)
[2019-09-23] MEDS: Acetaminophen TAB* 325 MG PO PRN (23:22)
[2019-09-24] MEDS: Ibuprofen TAB* 600 MG PO PRN ×3 (02:39→15:51)
[2019-09-24] MEDS: Acetaminophen TAB* 325 MG PO PRN (08:04)
[2019-09-24] MEDS: Docusate CAP* 100 MG PO SCH ×2 (08:04→15:51)
[2019-09-24] MEDS: Ferrous Gluconate TAB* 324 MG TAB PO SCH (08:04)
[2019-09-24 08:27] VITALS: BP 116/83
== END 2019-09-24 18:36 | disposition home or self-care (01) | DRG 560 ==
LOC: MCHOBOUT 07:10 → MCHOB 08:14
PROVIDERS: ADMIT Obstetrics & Gynecology; ATTEND Obstetrics & Gynecology
PROC: 10E0XZZ Delivery of Products of Conception, External Approach (ICD-10-PCS; principal; 2019-09-22)
PROC: 4A1HXCZ Monitoring of Products of Conception, Cardiac Rate, External Approach (ICD-10-PCS; 2019-09-22)
DX: O75.89 Other specified complications of labor and delivery (principal); Z37.0 Single live birth; M06.9 Rheumatoid arthritis, unspecified; O62.3 Precipitate labor; O90.81 Anemia of the puerperium; Z3A.36 36 weeks gestation of pregnancy
CPT/HCPCS: 36415; 80307; 84112; 85025; 86850; 86900; 86901; 87070; 87077; A9270-GY; G0480; J0702; J2540; J2590

== ENCOUNTER 2020-09-16 08:12 | Inpatient (IN) ==
[~2020-09-16 08:12] MED LIST: Buffered Lidocaine 1% SYRIN 1 ml INTRADERM ONE; Lactated Ringers 1000 ml BAG 1,000 ML IV ONE
[2020-09-16] MEDS ORDERED: Oxytocin in LR 20 UNITS/1,000 ML BAG IVPB SCH ×2 (09:00→16:00)
[2020-09-16] MEDS ORDERED: Lactated Ringers 1000 ml BAG 1,000 ML IV SCH ×2 (09:00→16:00)
[2020-09-16 09:15] LABS: ABS Eosinophils 0.1 10^3/ul (0-0.6); ABS Lymphocytes 2.4 10^3/ul (1.0-4.8); ABS Monocytes 0.4 10^3/ul (0-0.8); ABS Neutrophils 4.2 10^3/ul (1.5-7.7); Eosinophil % 1.2 %; Hematocrit 31 % (35-47); Hemoglobin 10.7 g/dL (12.0-16.0); Lymphocyte % 33.4 %; Mean Corpuscular HGB Conc 34 g/dL (31-36); Mean Corpuscular Hemoglobin 30 pg (27-31); Mean Corpuscular Volume 89 fL (80-97); Mean Platelet Volume 8.4 fL (7.4-10.4); Nucleated Red Blood Cells % 0.1; Platelet Count 243 10^3/uL (150-450); Red Blood Count 3.53 10^6 /uL (3.70-4.87); Red Cell Distribution Width 15 % (10-15); White Blood Count 7.1 10^3/uL (3.5-10.8)
[2020-09-16 09:36] LABS: Urine Benzodiazepine Screen None Detected (None Detect); Urine Cannabinoids Screen None Detected (None Detect); Urine Opiates Screen None Detected (None Detect)
[2020-09-16] MEDS ORDERED: OBEPIDURAL 250 ML EPIDURAL ONE (13:35)
[2020-09-16] MEDS ORDERED: Dibucaine 1% OINT 28.35 GM TUBE PR PRN (15:13)
[2020-09-16] MEDS ORDERED: Glycerin ADULT 2.4 gm SUPP PR PRN (15:13)
[2020-09-16] MEDS ORDERED: Witch Hazel PAD JAR TOPICAL PRN (15:13)
[2020-09-17 05:00] LABS: ABS Basophils 0.1 10^3/ul (0-0.2); ABS Eosinophils 0.1 10^3/ul (0-0.6); ABS Lymphocytes 3.3 10^3/ul (1.0-4.8); ABS Monocytes 0.6 10^3/ul (0-0.8); ABS Neutrophils 3.9 10^3/ul (1.5-7.7); Eosinophil % 1.5 %; Hematocrit 28 % (35-47); Hemoglobin 9.3 g/dL (12.0-16.0); Lymphocyte % 41.8 %; Mean Corpuscular HGB Conc 33 g/dL (31-36); Mean Corpuscular Hemoglobin 30 pg (27-31); Mean Corpuscular Volume 89 fL (80-97); Nucleated Red Blood Cells % 0.1; Platelet Count 218 10^3/uL (150-450); Red Blood Count 3.12 10^6 /uL (3.70-4.87); Red Cell Distribution Width 15 % (10-15); White Blood Count 7.9 10^3/uL (3.5-10.8)
[2020-09-18 08:40] VITALS: BP 120/82
== END 2020-09-18 11:17 | disposition home or self-care (01) | DRG 560 ==
LOC: MCHOBOUT 08:12 → MCHOB 08:18
PROVIDERS: ADMIT Obstetrics & Gynecology; ATTEND Obstetrics & Gynecology